=== PATIENT | male | born 1935 | race Caucasian/White ===

== ENCOUNTER 2016-05-21 08:43 | Day surgery (SDC) | payer MEDICARE, BC ==
[~2016-05-21 08:43] MED LIST: Lactated Ringers 1,000 ML IV SCH; Lidocaine 1%/Sod Bicarbonate in NS 8.4% 1 ML Syringe IV PRN; Sodium Chloride 0.9% 10 ML Syringe FLUSH PRN
[2016-05-21] MEDS ORDERED: Propofol 200 MG/20 ML SDV ONE (09:52)
[2016-05-21] MEDS ORDERED: Lidocaine 1% 4 ML ONE (09:52)
--- NOTE | 2016-05-21 09:52 | PCM.PREANE ---
Preanesthetic Assessment - Procedure Proposed Procedure: Diagnostic EGD - Anesthesia/Transfusion/Family Hx Anesthesia History: Prior Anesthesia Without Reaction Family History of Anesthesia Reaction: No - Review of Systems General: Appetite (decreased appetite with stomach pain) Pulmonary: No Symptoms Cardiovascular: No Symptoms Gastrointestinal: Abdominal pain, Decreased appetite Other: Reports: Thyroid Problems (on replacement and stable) - Physical Assessment NPO Status Date: 05/20/16 NPO Status Time: 23:00 O2 Sat by Pulse Oximetry: 96 Respiratory Rate: 16 Vital Signs: Last Vital Signs Temp 36.9 C 05/21/16 08:45 Pulse 73 05/21/16 08:45 Resp 16 05/21/16 08:45 BP 128/72 05/21/16 08:45 Pulse Ox 96 05/21/16 08:45 Height: 1.65 m Weight: 58.06 kg ASA Class: 2 Mental Status: Alert & Oriented x3 Airway Class: Mallampati = 1 Dentition: Reports: Normal Dentition (some fillings) Thyro-Mental Finger Breadths: 3 Mouth Opening Finger Breadths: 3 ROM/Head Extension: Full Lungs: Clear to auscultation, Normal respiratory effort Cardiovascular: Regular Rate, Regular Rhythm, No Murmurs - Allergies Allergies/Adverse Reactions: Allergies Allergy/AdvReac Type Severity Reaction Status Date / Time promethazine HCl AdvReac Confusion Verified 05/20/16 14:27 [From Phenergan] propoxyphene napsylate AdvReac Confusion Verified 05/01/15 14:20 [From Darvocet-N] - Blood Blood Available: No - Acknowledgements Anesthesia Type Planned: MAC Pt an Appropriate Candidate for the Planned Anesthesia: Yes Alternatives and Risks of Anesthesia Discussed w Pt/Guardian: Yes Pt/Guardian Understands and Agrees with Anesthesia Plan: Yes PreAnesthesia Questionnaire HEENT History: Reports: Impaired vision Other HEENT History: wears glasses, has hearing aids Cardiovascular History: Reports: Heart murmur, High cholesterol Other Cardiovascular History: atherosclerosis, heart disease, 1st degree av block, pvcs, valvular incompetance, CABG Respiratory History: Reports: Sleep apnea Other Respiratory History: asbestos exposure Gastrointestinal History: Reports: GERD, Hemorrhoids Other Gastrointestinal History: bloating, peptic ulcer, rectal bleeding, dyspepsia, erovise esophagitis, hiatal hernia Other Genitourinary History: elevated PSA, hematuria 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: 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 Other Musculoskeletal History: restless leg syndrome Neurological History: Reports: None Psychiatric History: Reports: Anxiety Endocrine/Metabolic History: Reports: Hypothyroidism Hematologic History: Reports: None Immunologic History: Reports: None Oncologic (Cancer) History: Reports: None Other Dermatologic History: actinic keratosis, seborrheic keratosis - Past Surgical History Head Surgeries/Procedures: Reports: None HEENT Surgical History: Reports: Cataract surgery Cardiovascular Surgical History: Reports: Coronary artery bypass (x2 3 vessel and 4 vessel) GI Surgical History: Reports: Colonoscopy, EGD - SUBSTANCE USE Smoking Status *Q: Former Smoker (Quit many years ago) Tobacco Use Within Last Twelve Months: No Second Hand Smoke Exposure: No Days Per Week of Alcohol Use: 0 (endorses drinking a beer per month or less) Number of Drinks Per Day: 0 Total Drinks Per Week: 0 Recreational Drug Use History: No - HOME MEDS Home Medications: Home Meds Aspirin [Halfprin] 81 mg PO DAILY 02/14/14 [History] Levothyroxine 75 mcg PO DAILY 02/14/14 [History] Metoclopramide [Reglan] 5 mg PO TID PRN 02/14/14 [History] Pantoprazole Sodium 40 mg PO DAILY 02/14/14 [History] Sertraline HCl 50 mg PO DAILY 02/14/14 [History] atorvaSTATin [Lipitor] 20 mg PO BEDTIME 05/01/15 [History] Arginine HCl [l-Arginine] 1,000 mg PO DAILY 05/20/16 [History] Sucralfate [Carafate] 1 gm PO QID 05/20/16 [History] - CURRENT (IN HOUSE) MEDS Current Meds: Current Medications Lactated Ringer's (Ringers, Lactated) 1,000 mls @ 125 mls/hr IV ASDIRECTED LES Last Admin: 05/21/16 09:00 Dose: 125 mls/hr Lidocaine/Sodium Bicarbonate (Buffered Lidocaine 1% In Ns 8.4%) 0.25 ml IV ONETIME PRN PRN Reason: Prior to IV Start Last Admin: 05/21/16 09:00 Dose: 0.25 ml Sodium Chloride (Saline Flush) 10 ml FLUSH ASDIRECTED PRN PRN Reason: Keep Vein Open Discontinued Medications Lidocaine HCl (Xylocaine-Mpf 1%) Confirm Administered Dose 4 mls @ as directed .ROUTE .STK-MED ONE Stop: 05/21/16 09:53 Propofol (Diprivan 20 Ml) Confirm Administered Dose 200 mg .ROUTE .STK-MED ONE Stop: 05/21/16 09:53 Preanesthetic Assessment - ANESTHESIA/TRANSFUSION/FAMILY HX Anesthesia/Transfusion History: No Prior Transfusion(s), Prior Anesthesia Family History of Anesthesia Reaction: No Intubation History: Unknown - PHYSICAL ASSESSMENT O2 Sat by Pulse Oximetry: 96 RR: 16 Vital Signs: Last Vital Signs Temp 36.9 C 05/21/16 08:45 Pulse 73 05/21/16 08:45 Resp 16 05/21/16 08:45 BP 128/72 05/21/16 08:45 Pulse Ox 96 05/21/16 08:45 Height: 1.65 m Weight: 58.06 kg NPO Status Date: 05/20/16 NPO Status Time: 23:00 - ALLERGIES Allergies/Adverse Reactions: Allergies Allergy/AdvReac Type Severity Reaction Status Date / Time promethazine HCl AdvReac Confusion Verified 05/20/16 14:27 [From Phenergan] propoxyphene napsylate AdvReac Confusion Verified 05/01/15 14:20 [From Darvocet-N]
--- NOTE | 2016-05-21 09:59 | PCM.OPNOTE ---
- General Post-Op/Procedure Note Date of Surgery/Procedure: 05/21/16 Operative Procedure(s): Esophagogastroduodenoscopy with proximal and GE junction biopsies x2 each using cold forceps Findings: moderately large sliding-type 1 hiatal hernia, with no endoscope evidence of esophagitis, ulceration, or stricturing Pre Op Diagnosis: chronic GERD Post-Op Diagnosis: large hiatal hernia Anesthesia Technique: MAC, Moderate sedation Primary Surgeon: Cipriano Jose Pathology: GE junction and proximal esophageal biopsies EBL in mLs: 0 Complications: None Condition: Good Free Text/Narrative:: After adequate IV sedation and analgesia was obtained the patient was placed on his left side. Through a bite-block a lubricated upper endoscope was inserted into the esophagus and advanced under direct vision to the body of the stomach. Air insufflation was given here, followed by identification of the antrum and pylorus, which was entered to the second part of duodenum. The second, and first parts of the duodenum were endoscopically normal with no mass lesions or inflammatory changes seen. The antrum likewise was endoscopically normal. In the retroflexed view I saw a sliding hiatal hernia, which I photographed for the record. The fundus, and cardiac regions were normal. The body of the stomach had normal folds with no inflammatory changes. The scope was withdrawn to the GE junction, which was unremarkable. The herniated pouch was also endoscopically normal. I estimated a 4 cm, herniation through the diaphragmatic hiatus. The body of the esophagus was normal. I took 2 random biopsies of the GE junction and proximal third of the esophagus for histologic evaluation given his history of dysphagia. Air was removed, as I finished the procedure, which he tolerated well. Multimedia Services Coordinator photographs taken for the patient and for the record. I recommend esophageal function studies. As he may be candidate for antireflux surgery.
[2016-05-21 10:03] VITALS: BP 91/59
== END 2016-05-21 10:30 | disposition home or self-care (01) ==
LOC: JD.SDS 08:43
PROVIDERS: ATTEND Surgery
DX: K31.89 Other diseases of stomach and duodenum (principal); K44.9 Diaphragmatic hernia without obstruction or gangrene; I25.10 Atherosclerotic heart disease of native coronary artery without angina pectoris; F41.9 Anxiety disorder, unspecified; E78.5 Hyperlipidemia, unspecified; G47.30 Sleep apnea, unspecified; E03.9 Hypothyroidism, unspecified; Z88.8 Allergy status to other drugs, medicaments and biological substances; Z79.82 Long term (current) use of aspirin; Z79.899 Other long term (current) drug therapy; Z95.1 Presence of aortocoronary bypass graft; Z98.890 Other specified postprocedural states; Z87.891 Personal history of nicotine dependence; Z72.0 Tobacco use
CPT/HCPCS: 43239; 88305; J7120; J2704

== ENCOUNTER 2017-01-08 08:17 | Emergency (ER) | payer MEDICARE, BC ==
[2017-01-08] MEDS ORDERED: Nitroglycerin 0.4 MG Tab.SL SL PRN (08:35)
[2017-01-08] MEDS ORDERED: Sodium Chloride 0.9% 10 ML Syringe FLUSH PRN (08:35)
[2017-01-08 08:43] VITALS: BP 165/62
--- NOTE | 2017-01-08 09:36 | CR ---
Chest: Portable view of the chest was obtained. Comparison: Prior chest x-ray of 12/19/14. Heart size and mediastinum are within normal limits. Lungs are clear. Surgical clips are noted at the gastroesophageal junction. Bony structures are grossly intact. Impression: 1. Incidental findings. Nothing acute is seen on portable chest x-ray. Diagnostic code #2
--- NOTE | 2017-01-08 10:53 | EDM.PDOC ---
ED HPI GENERAL MEDICAL PROBLEM - General Chief Complaint: Chest Pain Stated Complaint: CHEST PAIN Time Seen by Provider: 01/08/17 08:29 Source of Information: Reports: Patient History Limitations: Reports: No Limitations - History of Present Illness INITIAL COMMENTS - FREE TEXT/NARRATIVE: The patient woke up with chest pain at 0430 this morning. He describes it has an "elephant sitting on my chest." He has some shortness of breath with it. Exertion does not make it worse. He has no abdominal pain, nausea or vomiting. He has no fever, chills, or cough. He has a history of CAD. He had CABG twice. Back in 1994 and 2004. He quit smoking about 40 years ago. He has a bad family cardiac history with multiple siblings having bypass. He has not seen a patternmaker plaster for over 1 year. His doctor is Dr eKyes. Onset: Sudden Duration: Hour(s): (0430) Location: Reports: Chest Quality: Reports: Pressure Severity: Moderate Improves with: Reports: None Worsens with: Reports: None Context: Reports: Activity (The pain woke him up) Associated Symptoms: Reports: Chest Pain, Shortness of Breath. Denies: Cough, Fever/Chills, Nausea/Vomiting Middle Chest Pain Score (Numeric/FACES): 9 - Related Data Allergies Allergy/AdvReac Type Severity Reaction Status Date / Time promethazine HCl AdvReac Confusion Verified 01/08/17 08:34 [From Phenergan] propoxyphene napsylate AdvReac Confusion Verified 01/08/17 08:34 [From Darvocet-N] Home Meds: Home Meds Aspirin [Halfprin] 81 mg PO DAILY 02/14/14 [History] Levothyroxine 75 mcg PO DAILY 02/14/14 [History] Sertraline HCl 50 mg PO DAILY 02/14/14 [History] atorvaSTATin [Lipitor] 20 mg PO BEDTIME 05/01/15 [History] Arginine HCl [l-Arginine] 1,000 mg PO DAILY 05/20/16 [History] Cholecalciferol (Vitamin D3) [Vitamin D3] 1,000 unit PO DAILY 01/08/17 [History] L.acidoph,Paracasei, B.lactis [Probiotic] 1 tab PO DAILY 01/08/17 [History] Omeprazole 20 mg PO DAILY 01/08/17 [History] Past Medical History HEENT History: Reports: Impaired Vision Other HEENT History: wears glasses, has hearing aids Cardiovascular History: Reports: Heart Murmur, High Cholesterol Other Cardiovascular History: atherosclerosis, heart disease, 1st degree av block, pvcs, valvular incompetance, CABG Respiratory History: Reports: Sleep Apnea Other Respiratory History: asbestos exposure Gastrointestinal History: Reports: GERD, Hemorrhoids Other Gastrointestinal History: bloating, peptic ulcer, rectal bleeding, dyspepsia, erovise esophagitis, hiatal hernia Other Genitourinary History: elevated PSA, hematuria PIT HAND History: Reports: None Other Musculoskeletal History: restless leg syndrome Neurological History: Reports: None Psychiatric History: Reports: Anxiety Endocrine/Metabolic History: Reports: Hypothyroidism Hematologic History: Reports: None Immunologic History: Reports: None Oncologic (Cancer) History: Reports: None Other Dermatologic History: actinic keratosis, seborrheic keratosis - Past Surgical History Head Surgeries/Procedures: Reports: None HEENT Surgical History: Reports: Cataract Surgery Cardiovascular Surgical History: Reports: Coronary Artery Bypass GI Surgical History: Reports: Colonoscopy, EGD Social & Family History - Family History Cardiac: Reports: CAD, MS - Tobacco Use Smoking Status *Q: Former Smoker Years of Tobacco use: 20 Packs/Tins Daily: 0.5 Used Tobacco, but Quit: Yes Month Tobacco Last Used: unk Second Hand Smoke Exposure: No - Caffeine Use Caffeine Use: Reports: Coffee, Soda - Alcohol Use Days Per Week of Alcohol Use: 0 (endorses drinking a beer per month or less) Number of Drinks Per Day: 0 Total Drinks Per Week: 0 - Recreational Drug Use Recreational Drug Use: No Drug Use in Last 12 Months: No ED ROS GENERAL - Review of Systems Review Of Systems: See Below Constitutional: Reports: No Symptoms HEENT: Reports: No Symptoms Respiratory: Reports: Shortness of Breath Cardiovascular: Reports: Chest Pain Endocrine: Reports: No Symptoms GI/Abdominal: Reports: No Symptoms : Reports: No Symptoms Musculoskeletal: Reports: No Symptoms ED EXAM, GENERAL - Physical Exam Exam: See Below Exam Limited By: No Limitations General Appearance: Alert, No Apparent Distress Ears: Normal External Exam Nose: Normal Inspection Head: Atraumatic, Normocephalic Neck: Normal Inspection Respiratory/Chest: No Respiratory Distress, Lungs Clear, Normal Breath Sounds Cardiovascular: Regular Rate, Rhythm, No Edema, No Murmur GI/Abdominal: Soft, Non-Tender, No Organomegaly, No Mass Back Exam: Normal Inspection EKG INTERPRETATION EKG Date: 01/08/17 Time: 08:24 Rhythm: NSR Rate (Beats/Min): 65 [place]: Normal P-Wave: Present QRS: Normal ST-T: Depressed (V2 and V3) Course - Vital Signs Last Recorded V/S: Last Vital Signs Temp 97.2 F 01/08/17 08:30 Pulse 67 01/08/17 08:30 Resp 15 01/08/17 08:30 BP 165/62 H 01/08/17 08:38 Pulse Ox 100 01/08/17 08:30 - Orders/Labs/Meds Orders: Active Orders 24 hr Category Date Time Status Cardiac Monitoring [RC] . DIRECTED Care 01/08/17 08:35 Active EKG Documentation Completion [RC] ASDIRECTED Care 01/08/17 11:18 Active EKG Documentation Completion [RC] STAT Care 01/08/17 08:35 Active Oxygen Therapy [RC] PRN Care 01/08/17 08:35 Active Peripheral IV Care [RC] . DIRECTED Care 01/08/17 08:35 Active CBC W/O DIFF,HEMOGRAM [HEME] MOTH@0700 Lab 01/12/17 07:00 Ordered CBC W/O DIFF,HEMOGRAM [HEME] MOTH@0700 Lab 01/15/17 07:00 Ordered CBC W/O DIFF,HEMOGRAM [HEME] MOTH@0700 Lab 01/19/17 07:00 Ordered CBC W/O DIFF,HEMOGRAM [HEME] MOTH@0700 Lab 01/22/17 07:00 Ordered CBC W/O DIFF,HEMOGRAM [HEME] MOTH@0700 Lab 01/26/17 07:00 Ordered CBC W/O DIFF,HEMOGRAM [HEME] MOTH@0700 Lab 01/29/17 07:00 Ordered Heparin Sodium/D5W [Heparin 25,000 Units in D5W 500 ML] Med 01/08/17 12:15 Active 25,000 units in 500 ml IV TITRATE Nitroglycerin [Nitrostat] Med 01/08/17 08:35 Active 0.4 mg SL Q5M PRN Sodium Chloride 0.9% [Saline Flush] Med 01/08/17 08:35 Active 10 ml FLUSH ASDIRECTED PRN Peripheral IV Insertion Adult [OM.PC] Stat Oth 01/08/17 08:35 Ordered EKG 12 Lead [EK] Stat Ther 01/08/17 11:18 Ordered Medication Orders Heparin Sodium/Dextrose (Heparin 25,000 Units In D5w 500 Ml) 25,000 units in 500 mls @ 0 mls/hr IV TITRATE LES; 17 UNITS/KG/HR PRN Reason: Protocol Nitroglycerin (Nitrostat) 0.4 mg SL Q5M PRN PRN Reason: Chest Pain Last Admin: 01/08/17 08:38 Dose: 0.4 mg Sodium Chloride (Saline Flush) 10 ml FLUSH ASDIRECTED PRN PRN Reason: Keep Vein Open Last Admin: 01/08/17 09:01 Dose: 10 ml Labs: Laboratory Tests 01/08/17 01/08/17 01/08/17 Range/Units 08:25 08:25 11:25 WBC 8.19 (4.23-9.07) K/mm3 RBC 5.18 (4.63-6.08) M/mm3 Hgb 15.6 (13.7-17.5) gm/L Hct 46.7 (40.1-51.0) % MCV 90.2 (79.0-92.2) fl MCH 30.1 (25.7-32.2) pg MCHC 33.4 (32.2-35.5) g/dl RDW Std Deviation 43.0 (35.1-43.9) fL Plt Count 250 (163-337) K/mm3 MPV 11.3 (9.4-12.3) fl Neut % (Auto) 65.1 (34.0-67.9) % Lymph % (Auto) 20.9 L (21.8-53.1) % [place] % (Auto) 11.7 (5.3-12.2) % Eos % (Auto) 2.1 (0.8-7.0) Baso % (Auto) 0.1 (0.1-1.2) % Neut # (Auto) 5.33 (1.78-5.38) K/mm3 Lymph # (Auto) 1.71 (1.32-3.57) K/mm3 [place] # (Auto) 0.96 H (0.30-0.82) K/mm3 Eos # (Auto) 0.17 (0.04-0.54) K/mm3 Baso # (Auto) 0.01 (0.01-0.08) K/mm3 Sodium 139 (136-145) mEq/L Potassium 4.2 (3.5-5.1) mEq/L Chloride 102 (98-107) mEq/L Carbon Dioxide 29 (21-32) mEq/L Anion Gap 12.2 (5-15) BUN 20 H (7-18) mg/dL Creatinine 1.2 (0.7-1.3) mg/dL Est Cr Clr Drug Dosing 40.03 mL/min Estimated GFR (MDRD) 58 (>60) mL/min BUN/Creatinine Ratio 16.7 (14-18) Glucose 112 (83-115) mg/dL Calcium 9.4 (8.5-10.1) mg/dL Total Bilirubin 0.6 (0.2-1.0) mg/dL AST 26 (15-37) U/L ALT 33 (16-63) U/L Alkaline Phosphatase 70 (46-116) U/L Troponin I < 0.017 0.103 H* (0.00-0.056) ng/mL Total Protein 7.7 (6.4-8.2) g/dl Albumin 3.9 (3.4-5.0) g/dl Globulin 3.8 gm/dL Albumin/Globulin Ratio 1.0 (1-2) Meds: Medications Generic Name Dose Route Start Last Admin Trade Name Freq PRN Reason Stop Dose Admin Heparin Sodium/Dextrose 25,000 units in 500 mls @ 0 mls/hr 01/08/17 12:15 Heparin 25,000 Units In D5w 500 Ml IV TITRATE LES Protocol 17 UNITS/KG/HR Nitroglycerin 0.4 mg 01/08/17 08:35 01/08/17 08:38 Nitrostat SL 0.4 mg Q5M PRN Administration Chest Pain Sodium Chloride 10 ml 01/08/17 08:35 01/08/17 09:01 Saline Flush FLUSH 10 ml ASDIRECTED PRN Administration Keep Vein Open Discontinued Medications Generic Name Dose Route Start Last Admin Trade Name Freq PRN Reason Stop Dose Admin Heparin Sodium (Porcine) 4,500 units 01/08/17 12:10 Heparin Sodium IVPUSH 01/08/17 12:11 ONETIME ONE - Re-Assessments/Exams Free Text/Narrative Re-Assessment/Exam: 01/08/17 10:56 I ordered an IV saline lock, EKG, CXR, labs, and nitro. The patient took a full 325mg of aspirin at home. After the nitro his pain went completely away. His EKG shows a NSR with some ST depression in V2. This appears to be new. His CXR looks good. His CBC and CMP looks good. His troponin is negative. I will repeat a troponin and EKG at the 3 hour kevon. 01/08/17 12:13 His repeat troponin came back elevated at 0.103. This is a significant change from before. He is still pain free. I have ordered a heparin bolus of 4, 500units IV and a drip at 1,000units per hour. I feel he needs to see cardiology in [place]. I called [facility] in [place] and talked with Dr Stanley the hospitalist coroner/medical examiner and she accepted the patient. I will be going by ambulance. 01/08/17 12:33 Departure - Departure Time of Disposition: 12:35 Disposition: DC/Tfer to Acute Hospital 02 Reason for Transfer *Q: Other Condition: Serious Clinical Impression: Non-STEMI (non-ST elevated myocardial infarction) Referrals: Azael Gatica MD [Primary Care Provider] - Forms: ED Department Discharge - My Orders Last 24 Hours: My Active Orders 01/08/17 08:35 Cardiac Monitoring [RC] . DIRECTED EKG Documentation Completion [RC] STAT Oxygen Therapy [RC] PRN Peripheral IV Care [RC] . DIRECTED Nitroglycerin [Nitrostat] 0.4 mg SL Q5M PRN Sodium Chloride 0.9% [Saline Flush] 10 ml FLUSH ASDIRECTED PRN Peripheral IV Insertion Adult [OM.PC] Stat 01/08/17 11:18 EKG Documentation Completion [RC] ASDIRECTED EKG 12 Lead [EK] Stat 01/08/17 12:15 Heparin Sodium/D5W [Heparin 25,000 Units in D5W 500 ML] 25,000 units in 500 ml IV TITRATE 01/12/17 07:00 CBC W/O DIFF,HEMOGRAM [HEME] MOTH@0700 01/15/17 07:00 CBC W/O DIFF,HEMOGRAM [HEME] MOTH@0700 11/20/17 07:00 CBC W/O DIFF,HEMOGRAM [HEME] MOTH@69901/22/17 07:00 CBC W/O DIFF,HEMOGRAM [HEME] MOTH@69901/26/17 07:00 CBC W/O DIFF,HEMOGRAM [HEME] MOTH@69901/29/17 07:00 CBC W/O DIFF,HEMOGRAM [HEME] MOTH@699 - Assessment/Plan Last 24 Hours: My Active Orders 01/08/17 08:35 Cardiac Monitoring [RC] . DIRECTED EKG Documentation Completion [RC] STAT Oxygen Therapy [RC] PRN Peripheral IV Care [RC] . DIRECTED Nitroglycerin [Nitrostat] 0.4 mg SL Q5M PRN Sodium Chloride 0.9% [Saline Flush] 10 ml FLUSH ASDIRECTED PRN Peripheral IV Insertion Adult [OM.PC] Stat 01/08/17 11:18 EKG Documentation Completion [RC] ASDIRECTED EKG 12 Lead [EK] Stat 01/08/17 12:15 Heparin Sodium/D5W [Heparin 25,000 Units in D5W 500 ML] 25,000 units in 500 ml IV TITRATE 01/12/17 07:00 CBC W/O DIFF,HEMOGRAM [HEME] MOTH@69901/15/17 07:00 CBC W/O DIFF,HEMOGRAM [HEME] MOTH@69901/19/17 07:00 CBC W/O DIFF,HEMOGRAM [HEME] MOTH@69901/22/17 07:00 CBC W/O DIFF,HEMOGRAM [HEME] MOTH@69901/26/17 07:00 CBC W/O DIFF,HEMOGRAM [HEME] MOTH@69901/29/17 07:00 CBC W/O DIFF,HEMOGRAM [HEME] MOTH@699
[2017-01-08] MEDS ORDERED: Heparin Sodium 5,000 Units/ML Vial IVPUSH ONE (12:10)
[2017-01-08] MEDS ORDERED: Heparin Sodium/D5W 25,000 UNITS/500 ML BAG IV SCH (12:15)
== END 2017-01-08 13:15 ==
LOC: JD.ED 08:17
DX: I21.4 Non-ST elevation (NSTEMI) myocardial infarction (principal); E78.00 Pure hypercholesterolemia, unspecified; K21.9 Gastro-esophageal reflux disease without esophagitis; E03.9 Hypothyroidism, unspecified; Z95.1 Presence of aortocoronary bypass graft; Z87.891 Personal history of nicotine dependence; Z79.82 Long term (current) use of aspirin; Z79.899 Other long term (current) drug therapy; Z88.8 Allergy status to other drugs, medicaments and biological substances
CPT/HCPCS: 36415; 71010; 80053; 84484; 85025; 93005; 96365; 96375; 99285; A9270; J1644; J7050; 93010

== ENCOUNTER 2017-08-27 19:53 | Emergency (ER) | payer MEDICARE, OTHER ==
[2017-08-27 20:02] VITALS: BP 110/75
[2017-08-27] MEDS ORDERED: Lidocaine 1% 20 ML MDV INJECT ONE (20:28)
[2017-08-27] MEDS ORDERED: Lidocaine 1% 10 ML MDV ONE (20:33)
[2017-08-27] MEDS ORDERED: Lidocaine 1% 10 ML MDV INJECT ONE (20:34)
--- NOTE | 2017-08-27 21:14 | EDM.PDOC ---
ED HPI GENERAL MEDICAL PROBLEM - General Chief Complaint: Laceration Stated Complaint: CUT ON LEFT HAND Time Seen by Provider: 08/27/17 20:29 Source of Information: Reports: Patient History Limitations: Reports: No Limitations - History of Present Illness INITIAL COMMENTS - FREE TEXT/NARRATIVE: 82-year-old male presents for evaluation and treatment of a cut to the dorsal left hand. Injury occurred around 1700. States that he cut his hand on some glass. He is on Plavix and aspirin daily. Having trouble controlling the bleeding, the wound continues to ooze. No numbness, tingling or decreased range motion to the left hand. Tetanus is up-to-date. Patient is right-handed. Onset: Today - Related Data Allergies Allergy/AdvReac Type Severity Reaction Status Date / Time promethazine HCl AdvReac Confusion Verified 01/30/17 10:12 [From Phenergan] propoxyphene napsylate AdvReac Confusion Verified 01/30/17 10:12 [From Darvocet-N] Home Meds: Home Meds Aspirin [Halfprin] 81 mg PO DAILY 02/14/14 [History] Levothyroxine 75 mcg PO DAILY 02/14/14 [History] Sertraline HCl 50 mg PO DAILY 02/14/14 [History] Cholecalciferol (Vitamin D3) [Vitamin D3] 1,000 unit PO DAILY 01/08/17 [History] Clopidogrel Bisulfate [Clopidogrel] 75 mg PO DAILY 01/20/17 [History] Isosorbide Mononitrate [Isosorbide Mononitrate ER] 60 mg PO DAILY 01/20/17 [ History] Pantoprazole Sodium 40 mg PO DAILY 01/20/17 [History] Ezetimibe [Zetia] 10 mg PO DAILY 02/06/17 [History] Clopidogrel [Plavix] 75 mg PO DAILY 08/27/17 [History] Rosuvastatin [Crestor] 5 mg PO DAILY 08/27/17 [History] Past Medical History HEENT History: Reports: Impaired Vision Other HEENT History: wears glasses, has hearing aids Cardiovascular History: Reports: Heart Murmur, High Cholesterol Other Cardiovascular History: atherosclerosis, heart disease, 1st degree av block, pvcs, valvular incompetance, CABG Respiratory History: Reports: Sleep Apnea Other Respiratory History: asbestos exposure Gastrointestinal History: Reports: GERD, Hemorrhoids Other Gastrointestinal History: bloating, peptic ulcer, rectal bleeding, dyspepsia, erovise esophagitis, hiatal hernia Genitourinary History: Reports: Other (See Below) Other Genitourinary History: elevated PSA, hematuria [employer]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 Other Musculoskeletal History: restless leg syndrome Neurological History: Reports: None Other Neuro History: restless leg syndrome Psychiatric History: Reports: Anxiety Endocrine/Metabolic History: Reports: Hypothyroidism Hematologic History: Reports: None Other Hematologic History: is on plavix and aspirin Immunologic History: Reports: None Oncologic (Cancer) History: Reports: None Dermatologic History: Reports: Other (See Below) Other Dermatologic History: actinic keratosis, seborrheic keratosis - Past Surgical History Head Surgeries/Procedures: Reports: None HEENT Surgical History: Reports: Cataract Surgery Cardiovascular Surgical History: Reports: Coronary Artery Bypass GI Surgical History: Reports: Colonoscopy, EGD Social & Family History - Family History Cardiac: Reports: CAD, [place] - Tobacco Use Smoking Status *Q: Unknown Ever Smoked - Caffeine Use Caffeine Use: Reports: Coffee - Recreational Drug Use Recreational Drug Use: No ED ROS GENERAL - Review of Systems Review Of Systems: See Below Musculoskeletal: Reports: Other (no decreased ROM to the left hand). Denies: Hand Pain Skin: Reports: Wound (dorsal left hand ) Neurological: Denies: Numbness, Tingling ED EXAM, SKIN/RASH Exam: See Below Exam Limited By: No Limitations General Appearance: Alert, WD/WN, No Apparent Distress Respiratory/Chest: No Respiratory Distress Cardiovascular: Normal Peripheral Pulses Peripheral Pulses: 2+: Radial (L) Extremities: Normal Inspection, Normal Range of Motion (left hand), Non-Tender, Normal Capillary Refill Neurological: Alert, Oriented, Normal Cognition Psychiatric: Normal Affect, Normal Mood Skin: Warm, Dry, Normal Color, Wound/Incision (2.5cm laceration to the dorsal left hand, subcutaneous; actively oozing blood) Location, Skin: Upper Extremity, Left Characteristics: Linear ED SKIN PROCEDURES - Laceration/Wound Repair Left Dorsal Hand Lac/Wound length In cm: 2.5 Appearance: Subcutaneous, Linear Distal NVT: Neuro & Vascular Intact, No Tendon Injury Anesthetic Type: Local Local Anesthesia - Lidocaine (Xylocaine): 1% Plain Local Anesthetic Volume: 1cc Skin Prep: Saline, Sterile Drape Exploration/Debridement/Repair: No Foreign Material Found Closed with: Sutures Suture Size: other (5-0) # of Sutures: 5 Suture Type: Nylon, Interrupted, Simple Sterile Dressing Applied: Nurse Tetanus Status Addressed: Yes Complications: No Course - Vital Signs Last Recorded V/S: Last Vital Signs Temp 98.1 F 08/27/17 20:00 Pulse 84 08/27/17 20:00 Resp 18 08/27/17 20:00 BP 110/75 08/27/17 20:00 Pulse Ox 94 L 08/27/17 20:00 - Orders/Labs/Meds Meds: Medications Discontinued Medications Generic Name Dose Route Start Last Admin Trade Name Osmin PRN Reason Stop Dose Admin Lidocaine HCl 20 ml 08/27/17 20:28 Xylocaine 1% INJECT 08/27/17 20:29 ONETIME ONE Lidocaine HCl 10 ml 08/27/17 20:34 08/27/17 20:34 Xylocaine 1% INJECT 08/27/17 20:35 10 ml ONETIME ONE Administration Lidocaine HCl Confirm 08/27/17 20:33 08/27/17 20:55 Xylocaine 1% Administered 08/27/17 20:34 Not Given Dose 10 ml .ROUTE .[facility] ONE - Re-Assessments/Exams Free Text/Narrative Re-Assessment/Exam: 08/27/17 21:10 5 sutures placed to the dorsal left hand. Patient tolerated well. His tetanus is up-to-date. Discharge instructions as documented. Departure - Departure Time of Disposition: 21:10 Disposition: Home, Self-Care 01 Condition: Good Clinical Impression: Laceration - Discharge Information Instructions: Laceration Care, Adult Referrals: Azael Gatica MD [Primary Care Provider] - Forms: ED Department Discharge Additional Instructions: Monitor the wound for signs of infection such as increase swelling, pus or redness. Present to the clinic or the ER should this develop. Wash the wound with gentle soap and water. Apply antibacterial ointment twice a day. Have the sutures removed in 10 days. The [facility] clinic can remove the sutures for free. Call [phone] to schedule with a provider there. tylenol or motrin as needed for pain. Please return to the ER should your symptoms change or worsen.
== END 2017-08-27 21:19 | disposition home or self-care (01) ==
LOC: JD.ED 19:53
DX: S61.412A Laceration without foreign body of left hand, initial encounter (principal); E78.00 Pure hypercholesterolemia, unspecified; K21.9 Gastro-esophageal reflux disease without esophagitis; I25.810 Atherosclerosis of coronary artery bypass graft(s) without angina pectoris; E03.9 Hypothyroidism, unspecified; Z79.01 Long term (current) use of anticoagulants; Z79.899 Other long term (current) drug therapy; Z95.1 Presence of aortocoronary bypass graft; Z79.82 Long term (current) use of aspirin; Z88.8 Allergy status to other drugs, medicaments and biological substances; W25.XXXA Contact with sharp glass, initial encounter
CPT/HCPCS: 12001; 99283-25

== ENCOUNTER 2017-10-15 22:41 | Emergency (ER) | payer MEDICARE, OTHER ==
[2017-10-15 22:49] VITALS: BP 152/72
[2017-10-15] MEDS ORDERED: Sodium Chloride 0.9% 10 ML Syringe FLUSH PRN (23:00)
[2017-10-15] MEDS ORDERED: Sodium Chloride 0.9% 1,000 ML IV SCH (23:00)
[2017-10-15] MEDS ORDERED: Ondansetron 4 MG/2 ML SDV IVPUSH ONE (23:00)
--- NOTE | 2017-10-16 00:08 | EDM.PDOC ---
ED HPI GENERAL MEDICAL PROBLEM - General Chief Complaint: Neurological Problem Stated Complaint: DIZZY,SICK TO STOMACH Time Seen by Provider: 10/15/17 22:55 Source of Information: Reports: Patient History Limitations: Reports: No Limitations - History of Present Illness INITIAL COMMENTS - FREE TEXT/NARRATIVE: The patient presents with dizziness and nausea. The patient was getting up from his chair to get ready for bed when this started. He has never had this happen before and he was feeling fine just prior to getting out of his chair. He says the room is spinning and he has nausea. He has some mild pressure to the back of his head. He has no fever, chills, cough, ear pain, hearing loss, ringing in his ears, chest pain, shortness of breath, abdominal pain, vomiting, numbness or weakness. Onset: Sudden Duration: Minutes: Location: Reports: Head Quality: Reports: Pressure Severity: Mild Improves with: Reports: Immobilization Worsens with: Reports: Movement Context: Reports: Activity (He just sat up from his chair) Associated Symptoms: Reports: Headaches. Denies: Confusion, Chest Pain, Cough, Fever/Chills, Nausea/Vomiting, Shortness of Breath - Related Data Allergies Allergy/AdvReac Type Severity Reaction Status Date / Time promethazine HCl AdvReac Confusion Verified 10/15/17 22:49 [From Phenergan] propoxyphene napsylate AdvReac Confusion Verified 10/15/17 22:49 [From Darvocet-N] Home Meds: Home Meds Aspirin [Halfprin] 81 mg PO DAILY 02/14/14 [History] Levothyroxine 75 mcg PO DAILY 02/14/14 [History] Sertraline HCl 50 mg PO DAILY 02/14/14 [History] Cholecalciferol (Vitamin D3) [Vitamin D3] 1,000 unit PO DAILY 01/08/17 [History] Clopidogrel Bisulfate [Clopidogrel] 75 mg PO DAILY 01/20/17 [History] Isosorbide Mononitrate [Isosorbide Mononitrate ER] 60 mg PO DAILY 01/20/17 [ History] Pantoprazole Sodium 40 mg PO DAILY 01/20/17 [History] Ezetimibe [Zetia] 10 mg PO DAILY 02/06/17 [History] Clopidogrel [Plavix] 75 mg PO DAILY 08/27/17 [History] Rosuvastatin [Crestor] 5 mg PO DAILY 08/27/17 [History] Meclizine [Antivert] 25 mg PO Q6H PRN #20 tab 10/16/17 [Rx] Past Medical History HEENT History: Reports: Impaired Vision Other HEENT History: wears glasses, has hearing aids Cardiovascular History: Reports: Heart Murmur, High Cholesterol Other Cardiovascular History: atherosclerosis, heart disease, 1st degree av block, pvcs, valvular incompetance, CABG Respiratory History: Reports: Sleep Apnea Other Respiratory History: asbestos exposure Gastrointestinal History: Reports: GERD, Hemorrhoids Other Gastrointestinal History: bloating, peptic ulcer, rectal bleeding, dyspepsia, erovise esophagitis, hiatal hernia Genitourinary History: Reports: Other (See Below) Other Genitourinary History: elevated PSA, hematuria 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 Other Musculoskeletal History: restless leg syndrome Neurological History: Reports: None Other Neuro History: restless leg syndrome Psychiatric History: Reports: Anxiety Endocrine/Metabolic History: Reports: Hypothyroidism Hematologic History: Reports: None Other Hematologic History: is on plavix and aspirin Immunologic History: Reports: None Oncologic (Cancer) History: Reports: None Dermatologic History: Reports: Other (See Below) Other Dermatologic History: actinic keratosis, seborrheic keratosis - Past Surgical History Head Surgeries/Procedures: Reports: None HEENT Surgical History: Reports: Cataract Surgery Cardiovascular Surgical History: Reports: Coronary Artery Bypass GI Surgical History: Reports: Colonoscopy, EGD Social & Family History - Family History Cardiac: Reports: CAD, [place] - Tobacco Use Smoking Status *Q: Never Smoker - Caffeine Use Caffeine Use: Reports: Coffee - Recreational Drug Use Recreational Drug Use: No ED ROS GENERAL - Review of Systems Review Of Systems: See Below Constitutional: Reports: No Symptoms HEENT: Reports: Vertigo Respiratory: Reports: No Symptoms Cardiovascular: Reports: No Symptoms Endocrine: Reports: No Symptoms GI/Abdominal: Reports: Nausea. Denies: Abdominal Pain, Vomiting : Reports: No Symptoms Musculoskeletal: Reports: No Symptoms Skin: Reports: No Symptoms Neurological: Reports: Headache ED EXAM, NEURO - Physical Exam Exam: See Below Exam Limited By: No Limitations General Appearance: Alert, No Apparent Distress Eye Exam: Left Eye: Nystagmus, Bilateral Eye: EOMI Ears: Normal External Exam, Normal Canal, Normal TMs Nose: Normal Inspection Throat/Mouth: Normal Inspection Head Exam: Atraumatic, Normocephalic Neck: Normal Inspection Respiratory/Chest: No Respiratory Distress, Lungs Clear, Normal Breath Sounds Cardiovascular: Regular Rate, Rhythm, No Edema, No Murmur GI/Abdominal: Soft, Non-Tender, No Organomegaly, No Mass Neurological: Alert, Normal Gait, No Motor/Sensory Deficits EKG INTERPRETATION EKG Date: 10/15/17 Time: 23:10 Rhythm: Other (Sinus bradycardia) Rate (Beats/Min): 55 [place]: Normal P-Wave: Present QRS: Normal ST-T: Normal QT: Normal MA/PQ Interval: 1st degree HB Course - Vital Signs Last Recorded V/S: Last Vital Signs Temp 96.7 F 10/15/17 22:45 Pulse 62 10/15/17 22:45 Resp 16 10/15/17 22:45 BP 152/72 H 10/15/17 22:45 Pulse Ox 93 L 10/15/17 22:45 - Orders/Labs/Meds Orders: Active Orders 24 hr Category Date Time Status Cardiac Monitoring [RC] . DIRECTED Care 10/15/17 23:00 Active EKG Documentation Completion [RC] STAT Care 10/15/17 23:01 Active Peripheral IV Care [RC] . DIRECTED Care 10/15/17 23:01 Active Head wo Cont [CT] Stat Exams 10/15/17 23:02 Taken Sodium Chloride 0.9% [Normal Saline] 1,000 ml Med 10/15/17 23:00 Active IV ASDIRECTED Sodium Chloride 0.9% [Saline Flush] Med 10/15/17 23:00 Active 10 ml FLUSH ASDIRECTED PRN ED Antiemetic Medication Reflex [OM.PC] Stat Oth 10/15/17 23:00 Ordered Peripheral IV Insertion Adult [OM.PC] Stat Oth 10/15/17 23:00 Ordered Medication Orders Sodium Chloride (Normal Saline) 1,000 mls @ 125 mls/hr IV ASDIRECTED LES Last Admin: 10/15/17 23:12 Dose: 125 mls/hr Sodium Chloride (Saline Flush) 10 ml FLUSH ASDIRECTED PRN PRN Reason: Keep Vein Open Last Admin: 10/15/17 23:12 Dose: 10 ml Labs: Laboratory Tests 10/15/17 10/15/17 Range/Units 23:10 23:10 WBC 7.24 (4.23-9.07) K/mm3 RBC 4.70 (4.63-6.08) M/mm3 Hgb 14.4 (13.7-17.5) gm/L Hct 43.2 (40.1-51.0) % MCV 91.9 (79.0-92.2) fl MCH 30.6 (25.7-32.2) pg MCHC 33.3 (32.2-35.5) g/dl RDW Std Deviation 43.1 (35.1-43.9) fL Plt Count 212 (163-337) K/mm3 MPV 11.2 (9.4-12.3) fl Neut % (Auto) 56.4 (34.0-67.9) % Lymph % (Auto) 29.6 (21.8-53.1) % [place] % (Auto) 11.9 (5.3-12.2) % Eos % (Auto) 1.9 (0.8-7.0) Baso % (Auto) 0.1 (0.1-1.2) % Neut # (Auto) 4.08 (1.78-5.38) K/mm3 Lymph # (Auto) 2.14 (1.32-3.57) K/mm3 [place] # (Auto) 0.86 H (0.30-0.82) K/mm3 Eos # (Auto) 0.14 (0.04-0.54) K/mm3 Baso # (Auto) 0.01 (0.01-0.08) K/mm3 Sodium 140 (136-145) mEq/L Potassium 3.5 (3.5-5.1) mEq/L Chloride 105 (98-107) mEq/L Carbon Dioxide 27 (21-32) mEq/L Anion Gap 11.5 (5-15) BUN 22 H (7-18) mg/dL Creatinine 1.1 (0.7-1.3) mg/dL Est Cr Clr Drug Dosing 42.95 mL/min Estimated GFR (MDRD) > 60 (>60) mL/min BUN/Creatinine Ratio 20.0 H (14-18) Glucose 130 H (83-115) mg/dL Calcium 8.5 (8.5-10.1) mg/dL Total Bilirubin 0.2 (0.2-1.0) mg/dL AST 21 (15-37) U/L ALT 33 (16-63) U/L Alkaline Phosphatase 60 (46-116) U/L Troponin I < 0.017 (0.00-0.056) ng/mL Total Protein 6.5 (6.4-8.2) g/dl Albumin 3.3 L (3.4-5.0) g/dl Globulin 3.2 gm/dL Albumin/Globulin Ratio 1.0 (1-2) Meds: Medications Generic Name Dose Route Start Last Admin Trade Name Freq PRN Reason Stop Dose Admin Sodium Chloride 1,000 mls @ 125 mls/hr 10/15/17 23:00 10/15/17 23:12 Normal Saline IV 125 mls/hr ASDIRECTED LES Administration Sodium Chloride 10 ml 10/15/17 23:00 10/15/17 23:12 Saline Flush FLUSH 10 ml ASDIRECTED PRN Administration Keep Vein Open Discontinued Medications Generic Name Dose Route Start Last Admin Trade Name Freq PRN Reason Stop Dose Admin Meclizine HCl 25 mg 10/15/17 23:01 10/15/17 23:11 Antivert PO 10/15/17 23:02 25 mg ONETIME ONE Administration Ondansetron HCl 4 mg 10/15/17 23:00 10/15/17 23:12 Zofran IVPUSH 10/15/17 23:01 4 mg ONETIME ONE Administration - Re-Assessments/Exams Free Text/Narrative Re-Assessment/Exam: 10/16/17 00:10 I ordered an IV NS at 125mL/hr, zofran 4mg IV, antivert 25mg by mouth, EKG, CT of his head, and labs. His EKG shows a sinus bradycardia and 1st degree AV block but no acute changes. His CBC and CMP look good. His troponin is negative. I am waiting for the CT results. His CT did look good to me. 10/16/17 00:[address] of his head looks good. This is vertigo. I will discharge him home with some antivert. Departure - Departure Time of Disposition: 00:35 Disposition: Home, Self-Care 01 Condition: Good Clinical Impression: Vertigo - Discharge Information *PRESCRIPTION DRUG MONITORING PROGRAM REVIEWED*: Not Applicable *COPY OF PRESCRIPTION DRUG MONITORING REPORT IN PATIENT RIKA: Not Applicable Prescriptions: Meclizine [Antivert] 25 mg PO Q6H PRN #20 tab PRN Reason: Dizziness Referrals: Azael Gatica MD [Primary Care Provider] - Forms: ED Department Discharge Additional Instructions: Drink plenty of fluid. Take the antivert every 6 hours as needed for dizziness. Be careful with quick position changes. Please return if you are worse. - My Orders Last 24 Hours: My Active Orders 10/15/17 23:00 Cardiac Monitoring [RC] . DIRECTED Sodium Chloride 0.9% [Normal Saline] 1,000 ml IV ASDIRECTED Sodium Chloride 0.9% [Saline Flush] 10 ml FLUSH ASDIRECTED PRN ED Antiemetic Medication Reflex [OM.PC] Stat Peripheral IV Insertion Adult [OM.PC] Stat 10/15/17 23:01 EKG Documentation Completion [RC] STAT Peripheral IV Care [RC] . DIRECTED 10/15/17 23:02 Head wo Cont [CT] Stat - Assessment/Plan Last 24 Hours: My Active Orders 10/15/17 23:00 Cardiac Monitoring [RC] . DIRECTED Sodium Chloride 0.9% [Normal Saline] 1,000 ml IV ASDIRECTED Sodium Chloride 0.9% [Saline Flush] 10 ml FLUSH ASDIRECTED PRN ED Antiemetic Medication Reflex [OM.PC] Stat Peripheral IV Insertion Adult [OM.PC] Stat 10/15/17 23:01 EKG Documentation Completion [RC] STAT Peripheral IV Care [RC] . DIRECTED 10/15/17 23:02 Head wo Cont [CT] Stat
--- NOTE | 2017-10-16 09:48 | CT ---
Head CT Technique: Multiple axial sections through the brain were obtained. Intravenous contrast was not utilized. Comparison: Prior MRI brain of 01/09/11. Findings: Ventricles along with basal cisterns and sulci over the convexities are mildly prominent. No abnormal parenchymal densities are seen. No evidence of intracranial hemorrhage. No midline shift or mass effect is seen. Mild atherosclerotic calcification is seen within the vertebral vessels and within the carotid siphon. Minimal basal ganglia calcification is incidentally noted. Bone window settings were reviewed which show the visualized sinuses to appear clear. No acute calvarial abnormality is identified. Impression: 1. Mild senescent change as noted above. 2. No acute intracranial abnormality is seen. Diagnostic code #2 I agree with preliminary report issued by [facility] ([facility] report finalized on 10/16/17, 1:20 AM Central Time)
== END 2017-10-16 00:46 | disposition home or self-care (01) ==
LOC: JD.ED 22:41
DX: R42 Dizziness and giddiness (principal); Z88.8 Allergy status to other drugs, medicaments and biological substances; Z79.82 Long term (current) use of aspirin; Z79.899 Other long term (current) drug therapy
CPT/HCPCS: 36415; 70450; 80053; 84484; 85025; 93005; 96361; 96374; 99284; A9270; J2405; J7040; J7050; 93010

== ENCOUNTER 2019-02-23 02:44 | Emergency (ER) | payer MEDICARE, OTHER ==
[2019-02-23 03:45] VITALS: BP 127/64; PULSE 86
--- NOTE | 2019-02-23 05:18 | EDM.PDOC ---
ED HPI GENERAL MEDICAL PROBLEM - General Chief Complaint: Genitourinary Problem Stated Complaint: BLADDER INFECTION Time Seen by Provider: 02/23/19 04:41 Source of Information: Reports: Patient, Family () History Limitations: Reports: No Limitations - History of Present Illness INITIAL COMMENTS - FREE TEXT/NARRATIVE: Mr. Schmidt is a very pleasant 83 year-old man with a past medical history significant for CAD, status-post three MIs, two 4-vessel CABGs and one coronary artery stent, on aspirin and Plavix, but no other anticoagulants, and BPH on tamsulosin, who states that he developed urinary urgency and dysuria on 02/20/2019, then a fever up to 102, along with generalized body aches, on 02/21/2019, then gross hematuria on 02/22/2019. He was seen at the walk-in clinic on Thursday, where a urinalysis was interpreted as the patient having a UTI. He was prescribed Keflex 500 mg BID x 10 days, which he has been taking as prescribed. He states that he has taken a total of 3 tablets of Keflex so far. The patient now presents to the ED stating that he has felt suprapubic pressure and the sensation that he cannot urinate for the past 3 days. No cough, dyspnea , or sore throat. The patient's PCP is Dr. Azael Patton. His Urologist is Dr. Cipriano Padilla. His Net Developer Architect is Dr. Jonathan Elizalde. The patient did receive an influenza vaccine this season. Suprapubic Pain Score (Numeric/FACES): 2 - Related Data Allergies Allergy/AdvReac Type Severity Reaction Status Date / Time promethazine HCl AdvReac Confusion Verified 02/23/19 03:45 [From Phenergan] propoxyphene napsylate AdvReac Confusion Verified 02/23/19 03:45 [From Darvocet-N] Home Meds: Home Meds Aspirin [Halfprin] 81 mg PO DAILY 02/14/14 [History] Levothyroxine 75 mcg PO DAILY 02/14/14 [History] Sertraline HCl 50 mg PO DAILY 02/14/14 [History] Cholecalciferol (Vitamin D3) [Vitamin D3] 1,000 unit PO DAILY 01/08/17 [History] Clopidogrel Bisulfate [Clopidogrel] 75 mg PO DAILY 01/20/17 [History] Isosorbide Mononitrate [Isosorbide Mononitrate ER] 60 mg PO DAILY 01/20/17 [ History] Pantoprazole Sodium 40 mg PO DAILY 01/20/17 [History] Ezetimibe [Zetia] 10 mg PO DAILY 02/06/17 [History] Clopidogrel [Plavix] 75 mg PO DAILY 08/27/17 [History] Rosuvastatin [Crestor] 5 mg PO DAILY 08/27/17 [History] Meclizine [Antivert] 25 mg PO Q6H PRN #20 tab 10/16/17 [Rx] Past Medical History HEENT History: Reports: Hard of Hearing, Impaired Vision Other HEENT History: wears glasses, has hearing aids Cardiovascular History: Reports: CAD, Heart Murmur, High Cholesterol, [place] (x 3) Gastrointestinal History: Reports: Diverticulosis, GERD, Hemorrhoids, Hiatal Hernia, PUD Genitourinary History: Reports: BPH Neurological History: Reports: Other (See Below) (Restless leg syndrome) Psychiatric History: Reports: Anxiety Endocrine/Metabolic History: Reports: Diabetes, Type II, Hypothyroidism - Past Surgical History HEENT Surgical History: Reports: Cataract Surgery (bilateral) Cardiovascular Surgical History: Reports: Coronary Artery Bypass (x 4-vessel, twice), Coronary Artery Stent (x 1, OM branch, 01/09/2017) GI Surgical History: Reports: Appendectomy, Colonoscopy (x 5), EGD (x 5), Hernia , Inguinal (bilateral), Other (See Below) (Exploratory laparotomy) Social & Family History - Family History Cardiac: Reports: CAD, [place] - Tobacco Use Smoking Status *Q: Former Smoker Years of Tobacco use: 20 Packs/Tins Daily: 0.5 Month/Year Tobacco Last Used: Quit 1970s Second Hand Smoke Exposure: No - Caffeine Use Caffeine Use: Reports: Coffee - Alcohol Use Alcohol Use History: Yes Alcohol Use Frequency: Socially - Recreational Drug Use Recreational Drug Use: No - Living Situation & Occupation Living situation: Reports: , with Spouse Occupation: Retired ED ROS GENERAL - Review of Systems Review Of Systems: Comprehensive ROS is negative, except as noted in HPI. ED EXAM, RENAL/ - Physical Exam Exam: See Below Exam Limited By: No Limitations General Appearance: Alert, WD/WN, No Apparent Distress Eye Exam: Bilateral Eye: EOMI, Normal Inspection Ears: Normal External Exam, Hearing Loss Nose: Normal Inspection Throat/Mouth: Normal Inspection, Normal Lips, Normal Voice, No Airway Compromise Head: Atraumatic, Normocephalic Neck: Normal Inspection, Full Range of Motion Respiratory/Chest: No Respiratory Distress, Lungs Clear, Normal Breath Sounds, No Accessory Muscle Use Cardiovascular: Normal Peripheral Pulses, Regular Rate, Rhythm, No Edema, No Gallop, No JVD, No Murmur, No Rub GI/Abdominal: Normal Bowel Sounds, Soft, Non-Tender (including suprapubically), No Organomegaly, No Distention, No Abnormal Bruit, No Mass (Male) Exam: Deferred Rectal (Males) Exam: Deferred Back Exam: Normal Inspection, Full Range of Motion. No: CVA Tenderness (L), CVA Tenderness (R) Extremities: Normal Inspection, Normal Range of Motion, No Pedal Edema, Normal Capillary Refill Neurological: Alert, Oriented, Normal Cognition, No Motor/Sensory Deficits Psychiatric: Normal Affect Skin Exam: Warm, Dry, Intact, Normal Color, No Rash Course - Vital Signs Last Recorded V/S: Last Vital Signs Temp 36.9 C 02/23/19 03:33 Pulse 86 02/23/19 03:33 Resp 20 02/23/19 03:33 BP 127/64 02/23/19 03:33 Pulse Ox 92 L 02/23/19 03:33 - Orders/Labs/Meds Labs: Laboratory Tests 02/23/19 Range/Units 03:56 Urine Color Kamala H (Yellow) Urine Appearance Slt cloudy H (Clear) Urine pH 6.0 (5.0-8.0) Ur Specific Hanson 1.025 (1.005-1.030) Urine Protein 1+ H (Negative) Urine Glucose (UA) 2+ H (Negative) Urine Ketones 2+ H (Negative) Urine Occult Blood 2+ H (Negative) Urine Nitrite Negative (Negative) Urine Bilirubin Negative (Negative) Urine Urobilinogen 0.2 (0.2-1.0) Ur Leukocyte Esterase Negative (Negative) Urine RBC 20-30 H (0-5) /hpf Urine WBC 0-5 (0-5) /hpf Ur Squamous Epith Cells 0-5 (0-5) /hpf Urine Bacteria Few (FEW) /hpf Urine Mucus Moderate H (FEW) /hpf - Re-Assessments/Exams Free Text/Narrative Re-Assessment/Exam: 02/23/19 05:12 The patient's urinalysis finds blood, but no other suggestion of a urinary tract infection. That is either because the patient never had a urinary tract infection, but was prescribed Keflex anyway, or because he did have a urinary tract infection, but was started on Keflex, which is the correct antibiotic. I suspect the latter. I am therefore recommending that he finish his 7-day course of Keflex. If he continues to have gross hematuria when the antibiotic is finished, he needs to follow-up with his Urologist for a cystoscopy to find the source of the bleeding, but if the hematuria resolves by the time he finishes his antibiotic, no further evaluation is necessary. With respect to the patient's urinary retention, the post-void bladder scan found 91 ml, which is well within acceptable limits. Departure - Departure Time of Disposition: 05:14 Disposition: Home, Self-Care 01 Condition: Good Clinical Impression: Urinary urgency, Gross hematuria - Discharge Information *PRESCRIPTION DRUG MONITORING PROGRAM REVIEWED*: Not Applicable *COPY OF PRESCRIPTION DRUG MONITORING REPORT IN PATIENT RIKA: Not Applicable Referrals: Azael Gatica MD [Primary Care Provider] - Cipriano Padilla MD [Physician] - Jonathan Elizalde MD [Ordering Only Provider] - Forms: ED Department Discharge Additional Instructions: You were seen in the emergency room for continued symptoms of bladder pressure and feeling like you cannot urinate. Workup in the ER included a urinalysis and a post-void bladder scan. Your urinalysis finds blood, but no other suggestion of a urinary tract infection. Your postvoid bladder scan found only 91 mL of retained urine, which is within acceptable limits. Based on your history, physical exam, and ER test, we suspect that you have a urinary tract infection, but that it is being adequately treated with the antibiotic Keflex that you were prescribed. We recommend that you finish the entire 7-day course of Keflex. Stay adequately hydrated. If you continue to have bloody urine after you have finished the Keflex, please follow-up with your Urologist, Dr. Cipriano Padilla, to arrange for a cystoscopy (scope of the urethra). If any other problems, please do not hesitate to return to the ER. Sepsis Event Note - Evaluation Sepsis Screening Result: No Definite Risk - Focused Exam Date Exam was Performed: 02/24/19 Time Exam was Performed: 22:20
== END 2019-02-23 05:30 | disposition home or self-care (01) ==
LOC: JD.ED 02:44
DX: R39.15 Urgency of urination (principal); R31.0 Gross hematuria; I25.10 Atherosclerotic heart disease of native coronary artery without angina pectoris; E11.9 Type 2 diabetes mellitus without complications; E78.00 Pure hypercholesterolemia, unspecified; I25.3 Aneurysm of heart; F41.9 Anxiety disorder, unspecified; Z79.82 Long term (current) use of aspirin; Z79.899 Other long term (current) drug therapy; Z88.8 Allergy status to other drugs, medicaments and biological substances; Z87.891 Personal history of nicotine dependence
CPT/HCPCS: 51798; 81001; 99281; 99284

== ENCOUNTER 2019-02-28 14:37 | Emergency (ER) | payer MEDICARE, OTHER ==
[2019-02-28 14:46] VITALS: BP 115/70; PULSE 67
--- NOTE | 2019-02-28 15:20 | EDM.PDOC ---
ED HPI GENERAL MEDICAL PROBLEM - General Chief Complaint: Genitourinary Problem Stated Complaint: CHECK CATHETER Time Seen by Provider: 02/28/19 14:43 Source of Information: Reports: Patient History Limitations: Reports: No Limitations - History of Present Illness INITIAL COMMENTS - FREE TEXT/NARRATIVE: She doesn't 83-year-old male who presents with his with complaints of occasionally having to urinate around his Suazo catheter. Patient has a history of BPH and is on tamsulosin. He states that he had a catheter placed in the clinic last Thursday for urinary retention. He has been having output into the bag, however occasionally he gets the urge to void and he has to for force himself to urinate around the catheter. He states that when this occurs he does still have urine in the catheter bag. He denies any blood or blood clots in his urine now or at this times when he has had to void around the catheter. - Related Data Allergies Allergy/AdvReac Type Severity Reaction Status Date / Time promethazine HCl AdvReac Confusion Verified 02/28/19 14:46 [From Phenergan] propoxyphene napsylate AdvReac Confusion Verified 02/28/19 14:46 [From Darvocet-N] Home Meds: Home Meds Aspirin [Halfprin] 81 mg PO DAILY 02/14/14 [History] Levothyroxine 75 mcg PO DAILY 02/14/14 [History] Sertraline HCl 50 mg PO DAILY 02/14/14 [History] Cholecalciferol (Vitamin D3) [Vitamin D3] 1,000 unit PO DAILY 01/08/17 [History] Clopidogrel Bisulfate [Clopidogrel] 75 mg PO DAILY 01/20/17 [History] Isosorbide Mononitrate [Isosorbide Mononitrate ER] 60 mg PO DAILY 01/20/17 [ History] Pantoprazole Sodium 40 mg PO DAILY 01/20/17 [History] Ezetimibe [Zetia] 10 mg PO DAILY 02/06/17 [History] Clopidogrel [Plavix] 75 mg PO DAILY 08/27/17 [History] Rosuvastatin [Crestor] 5 mg PO DAILY 08/27/17 [History] Meclizine [Antivert] 25 mg PO Q6H PRN #20 tab 10/16/17 [Rx] Past Medical History HEENT History: Reports: Hard of Hearing, Impaired Vision Other HEENT History: wears glasses, has hearing aids Cardiovascular History: Reports: CAD, Heart Murmur, High Cholesterol, [place] (x 3) Other Cardiovascular History: atherosclerosis, heart disease, 1st degree av block, pvcs, valvular incompetance, CABG Respiratory History: Reports: Sleep Apnea Other Respiratory History: asbestos exposure Gastrointestinal History: Reports: Diverticulosis, GERD, Hemorrhoids, Hiatal Hernia, PUD Other Gastrointestinal History: bloating, peptic ulcer, rectal bleeding, dyspepsia, erovise esophagitis, hiatal hernia Genitourinary History: Reports: BPH Other Genitourinary History: elevated PSA, hematuria INFORMATION SPECIALIST History: Reports: None Other Musculoskeletal History: restless leg syndrome Neurological History: Reports: Other (See Below) (Restless leg syndrome) Other Neuro History: restless leg syndrome Psychiatric History: Reports: Anxiety Endocrine/Metabolic History: Reports: Diabetes, Type II, Hypothyroidism Hematologic History: Reports: None Other Hematologic History: is on plavix and aspirin Immunologic History: Reports: None Oncologic (Cancer) History: Reports: None Dermatologic History: Reports: Other (See Below) Other Dermatologic History: actinic keratosis, seborrheic keratosis - Past Surgical History HEENT Surgical History: Reports: Cataract Surgery (bilateral) Cardiovascular Surgical History: Reports: Coronary Artery Bypass (x 4-vessel, twice), Coronary Artery Stent (x 1, OM branch, 01/09/2017) GI Surgical History: Reports: Appendectomy, Colonoscopy (x 5), EGD (x 5), Hernia , Inguinal (bilateral), Other (See Below) (Exploratory laparotomy) Social & Family History - Family History Cardiac: Reports: CAD, [place] - Caffeine Use Caffeine Use: Reports: Coffee - Living Situation & Occupation Living situation: Reports: , with Spouse Occupation: Retired ED ROS GENERAL - Review of Systems Review Of Systems: See Below Constitutional: Reports: No Symptoms HEENT: Reports: No Symptoms Respiratory: Reports: No Symptoms Cardiovascular: Reports: No Symptoms Endocrine: Reports: No Symptoms GI/Abdominal: Reports: No Symptoms : Reports: Urinary Retention Musculoskeletal: Reports: No Symptoms Skin: Reports: No Symptoms Neurological: Reports: No Symptoms Psychiatric: Reports: No Symptoms Hematologic/Lymphatic: Reports: No Symptoms Immunologic: Reports: No Symptoms ED EXAM, RENAL/ - Physical Exam Exam: See Below Exam Limited By: No Limitations General Appearance: Alert, WD/WN, No Apparent Distress Course - Vital Signs Last Recorded V/S: Last Vital Signs Temp 97.3 F 02/28/19 14:43 Pulse 67 02/28/19 14:43 Resp 18 02/28/19 14:43 BP 115/70 02/28/19 14:43 Pulse Ox 97 02/28/19 14:43 - Re-Assessments/Exams Free Text/Narrative Re-Assessment/Exam: The time of exam, the full catheter was draining appropriately. Patient did not have the urge to void. I did discuss with the patient that what is likely occurring is that somewhere along the line the tubing from the catheter to the bag becomes obstructed. I discussed that the differential for this is either that the tube is clogged within the bladder or that the tube was kinked further down the line. They did verbalize that when he has his leg bag on they feel like there is excessive tubing and it may become kinked. I did offer to remove the catheter and replace it with a slightly larger lumen, however they declined this option and stated that they did not want it changed. At this time we will irrigate the catheter and ensure that it is flowing patently. We will also deflate the balloon and reinflate with a slightly large amount of saline to get a better seal against the bladder wall. 02/28/19 15:32 RITO James did irrigate the catheter and trimmed down the catheter tubing so there is not an excess amount. Patient and his were also educated on bladder irrigation. Catheter is patent and flowing well at this time. One tiny blood clot was removed during the irrigation process We will send the patient home with in irrigation tray as well as the remaining sterile saline so that if it does seem to occlude again they can attempt irrigation. Discharge instructions as noted. Departure - Departure Time of Disposition: 15:34 Disposition: Home, Self-Care 01 Condition: Good Clinical Impression: Urinary retention - Discharge Information *PRESCRIPTION DRUG MONITORING PROGRAM REVIEWED*: No *COPY OF PRESCRIPTION DRUG MONITORING REPORT IN PATIENT RIKA: No Instructions: Indwelling Urinary Catheter Care, Adult, [id number] Referrals: Azael Gatica MD [Primary Care Provider] - Forms: ED Department Discharge Additional Instructions: You were seen in the emergency department today with intermittent urgency and urinating around her Suazo catheter. The catheter was irrigated and the tubing was trimmed. It is draining well at this time. We will send her home with a irrigation tray as well as the remaining sterile water. If the catheter should seem to occlude again, ensure that the tubing is not kinked between the penis and the bag. You may also try irrigating it with 50 mL's of sterile water. If it does not drain after irrigation or you having any other problems with it, please return to the emergency department. Follow-up with your urologist is currently scheduled. Sepsis Event Note - Evaluation Sepsis Screening Result: No Definite Risk - Focused Exam Vital Signs: Vital Signs Temp Pulse Resp BP Pulse Ox 02/28/19 14:43 97.3 F 67 18 115/70 97 Date Exam was Performed: 02/28/19 Time Exam was Performed: 15:32
== END 2019-02-28 16:20 | disposition home or self-care (01) ==
LOC: JD.ED 14:37
DX: R33.9 Retention of urine, unspecified (principal); I25.10 Atherosclerotic heart disease of native coronary artery without angina pectoris; E78.00 Pure hypercholesterolemia, unspecified; K21.9 Gastro-esophageal reflux disease without esophagitis; F41.9 Anxiety disorder, unspecified; E11.9 Type 2 diabetes mellitus without complications; E03.9 Hypothyroidism, unspecified; Z88.8 Allergy status to other drugs, medicaments and biological substances; Z79.82 Long term (current) use of aspirin; Z79.02 Long term (current) use of antithrombotics/antiplatelets; Z79.899 Other long term (current) drug therapy
CPT/HCPCS: 51798; 99281; 99283

== ENCOUNTER 2019-10-12 20:00 | Emergency (ER) | payer MEDICARE, OTHER ==
[2019-10-12 20:16] VITALS: BP 126/75; PULSE 57
--- NOTE | 2019-10-12 20:34 | EDM.PDOC ---
ED HPI GENERAL MEDICAL PROBLEM - General Chief Complaint: Upper Extremity Injury/Pain Stated Complaint: R ELBOW INJURY Time Seen by Provider: 10/12/19 20:17 Source of Information: Reports: Patient History Limitations: Reports: No Limitations - History of Present Illness INITIAL COMMENTS - FREE TEXT/NARRATIVE: Mr. Schmidt is a very pleasant 84-year-old gentleman with a past medical history significant for CAD, on both Plavix and a daily baby aspirin, who now presents the ED with a right elbow injury. He states that he was working on his tractor yesterday, 10/11/2019, when he slipped and fell, falling onto his right elbow, on concrete. He suffered an abrasion to the extensor surface of the elbow, to which he applied a Band-Aid. Today he noticed that there was in creased swelling to the extensor surface, although he continued to work throughout the day today, anyway. Here in the ED, the patient was initially found to be mildly bradycardic at 57 bpm, otherwise, he is hemodynamically stable, afebrile, saturating 96% on room air. Other than the right elbow injury, the patient denies having a recent fever, chills, sore throat, ear pain, nasal or sinus congestion, cough, dyspnea, chest pain, palpitations, nausea, vomiting, constipation, diarrhea, abdominal pain, urinary symptoms, recent weight gain or weight loss, recent bloody bowel movements or black bowel movements, recent joint aches, headaches, or rashes. The patient's PCP is Dr. Azael Patton. His Ironing Machine Operator is Dr. Jonathan Elizalde. His Urologist is Dr. Cipriano Padilla. Right Elbow Pain Score (Numeric/FACES): 3 - Related Data Allergies Allergy/AdvReac Type Severity Reaction Status Date / Time promethazine HCl AdvReac Confusion Verified 10/12/19 20:16 [From Phenergan] propoxyphene napsylate AdvReac Confusion Verified 10/12/19 20:16 [From Darvocet-N] Home Meds: Home Meds Aspirin [Halfprin] 81 mg PO DAILY 02/14/14 [History] Levothyroxine 75 mcg PO DAILY 02/14/14 [History] Sertraline HCl 50 mg PO DAILY 02/14/14 [History] Isosorbide Mononitrate [Isosorbide Mononitrate ER] 60 mg PO DAILY 01/20/17 [History] Pantoprazole Sodium 40 mg PO DAILY 01/20/17 [History] Ezetimibe [Zetia] 10 mg PO DAILY 02/06/17 [History] Clopidogrel [Plavix] 75 mg PO DAILY 08/27/17 [History] Rosuvastatin [Crestor] 5 mg PO DAILY 08/27/17 [History] Meclizine [Antivert] 25 mg PO Q6H PRN #20 tab 10/16/17 [Rx] Arginine [l-Arginine] 500 mg PO DAILY 02/28/19 [History] Dexlansoprazole [Dexilant] 30 mg PO DAILY 02/28/19 [History] Metoprolol Succinate 25 mg PO DAILY 02/28/19 [History] Tamsulosin [Flomax] 0.4 mg PO DAILY 02/28/19 [History] Past Medical History HEENT History: Reports: Hard of Hearing (wears hearing aids), Impaired Vision (wears glasses) Cardiovascular History: Reports: CAD, High Cholesterol, [place] (x 3) Respiratory History: Reports: Sleep Apnea Gastrointestinal History: Reports: Diverticulosis, GERD, Hemorrhoids, Hiatal Hernia, PUD Genitourinary History: Reports: BPH Psychiatric History: Reports: Anxiety, Other (See Below) (Restless leg syndrome) Endocrine/Metabolic History: Reports: Diabetes, Type II, Hypothyroidism - Past Surgical History HEENT Surgical History: Reports: Cataract Surgery (bilateral) Cardiovascular Surgical History: Reports: Coronary Artery Bypass (x 4 vessel, twice), Coronary Artery Stent (x 1 to OM branch, 01/09/2017) GI Surgical History: Reports: Appendectomy, Colonoscopy (x 5), EGD (x 5), Hernia, Inguinal (bilateral), Other (See Below) (Exploratory laparotomy) Social & Family History - Family History Cardiac: Reports: CAD, [place] - Tobacco Use Smoking Status *Q: Former Smoker Years of Tobacco use: 20 Packs/Tins Daily: 0.5 Month/Year Tobacco Last Used: Quit 1970s - Caffeine Use Caffeine Use: Reports: Coffee, Soda - Alcohol Use Alcohol Use History: Yes Alcohol Use Frequency: Socially - Recreational Drug Use Recreational Drug Use: No - Living Situation & Occupation Living situation: Reports: , with Spouse Occupation: Retired Review of Systems - Review of Systems Review Of Systems: Comprehensive ROS is negative, except as noted in HPI. ED EXAM, GENERAL - Physical Exam Exam: See Below Exam Limited By: No Limitations General Appearance: Alert, WD/WN, No Apparent Distress Extremities: Other (On inspection of the right upper extremity, there is an approximately 6 cm diameter area of fluctuant swelling over the extensor surface of the right elbow/proximal right forearm, which is tender to palpation. It is not ecchymotic, however, there is also an approximately 3 cm diameter abrasion to the extensor surface, within the area of swelling. No pain is induced in the elbow with compression of the proximal forearm, however, there may be some tenderness to palpation of the olecranon, but it is difficult to distinguish if this is due to soft tissue versus bony tenderness. The patient is able to freely fully flex and fully extend his right elbow without any limitations whatsoever. Neurovascular status of the right upper extremity is intact.) Course - Vital Signs Last Recorded V/S: Last Vital Signs Temp 36.4 C 10/12/19 20:12 Pulse 57 L 10/12/19 20:12 Resp 16 10/12/19 20:12 BP 126/75 10/12/19 20:12 Pulse Ox 96 10/12/19 20:12 - Orders/Labs/Meds Orders: Active Orders 24 hr Category Date Time Status Elbow Min 3V Rt [CR] Stat Exams 10/12/19 20:30 Taken - Re-Assessments/Exams Free Text/Narrative Re-Assessment/Exam: 10/12/19 20:31 As above, the patient fell 2 or 3 feet onto his right elbow on a concrete surface yesterday, merely abrading it at that time, but finding swelling of the elbow today. On examination, he has an approximately 6 cm diameter area of fluctuant swelling over the extensor surface/proximal right forearm, that is tender to palpation, however, I am not able to discern by physical examination if there is bony tenderness. I have ordered x-rays of the right elbow to evaluate. The patient declined an offer for pain medication. 10/12/19 21:45 3-view radiographs of the right elbow is read by vRjermaine as: 1. No fracture or dislocation. 2. Posterior soft tissue swelling over the olecranon and proximal ulna which could relate to soft tissue contusion or traumatic olecranon bursitis. No foreign body or underlying fracture. 3. 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 10/12/19 21:59 X-ray results discussed with the patient. I am recommending that he take [id number] Tylenol or ibuprofen as needed for discomfort, and to apply an ice pack as much as possible over the next couple of days to help minimize swelling. He may otherwise use his right arm as needed. Departure - Departure Time of Disposition: 21:59 Disposition: Home, Self-Care 01 Condition: Good Clinical Impression: Contusion of right elbow - Discharge Information *PRESCRIPTION DRUG MONITORING PROGRAM REVIEWED*: Not Applicable *COPY OF PRESCRIPTION DRUG MONITORING REPORT IN PATIENT RIKA: Not Applicable Instructions: Elbow Contusion Referrals: Azael Gatica MD [Primary Care Provider] - Cipriano Padilla MD [Ordering Only Provider] - Jonathan Elizalde MD [Ordering Only Provider] - Forms: ED Department Discharge Additional Instructions: You were seen in the emergency room after injuring your right elbow after a fall. Work-up in the ER included x-rays of your right elbow, which showed only soft tissue swelling with no bony injury. You do not have a broken elbow. We recommend that you take [id number] Tylenol or ibuprofen as needed for discomfort, and that you apply an ice pack to the swollen area of your right elbow as much as possible over the next 2 days, to help minimize swelling. You may use your right arm as tolerated. If any other problems, please do not hesitate to return to the ER. Sepsis Event Note (ED) - Evaluation Sepsis Screening Result: No Definite Risk - Focused Exam Vital Signs: Vital Signs Temp Pulse Resp BP Pulse Ox 10/12/19 20:12 36.4 C 57 L 16 126/75 96 - My Orders Last 24 Hours: My Active Orders 10/12/19 20:30 Elbow Min 3V Rt [CR] Stat - Assessment/Plan Last 24 Hours: My Active Orders 10/12/19 20:30 Elbow Min 3V Rt [CR] Stat
--- NOTE | 2019-10-13 08:54 | CR ---
Right elbow: 4 views of the right elbow were obtained. Comparison: No prior elbow exam. Posterior soft tissue swelling is noted. Deformity of the radial head is seen compatible with old fracture. Deformity of the coronoid process is also noted compatible with old fracture. There is joint space narrowing noted within the radiocapitellar joint. No joint effusion is seen. No acute fracture or other bony abnormality is appreciated. Impression: 1. Evidence of old injury. 2. Degenerative change. 3. Posterior soft tissue swelling. Note: If patient continues to be symptomatic, recommend repeat study in 10-14 days. Diagnostic code #2 This report was dictated in MDT I agree with preliminary report from [facility], finalized on 10/12/19, 10:38 PM Central Daylight Time
== END 2019-10-12 22:06 | disposition home or self-care (01) ==
LOC: JD.ED 20:00
DX: S50.01XA Contusion of right elbow, initial encounter (principal); I25.2 Old myocardial infarction; I25.10 Atherosclerotic heart disease of native coronary artery without angina pectoris; E78.00 Pure hypercholesterolemia, unspecified; K21.9 Gastro-esophageal reflux disease without esophagitis; N40.0 Benign prostatic hyperplasia without lower urinary tract symptoms; E11.9 Type 2 diabetes mellitus without complications; E03.9 Hypothyroidism, unspecified; F41.9 Anxiety disorder, unspecified; Z88.8 Allergy status to other drugs, medicaments and biological substances; Z79.82 Long term (current) use of aspirin; Z79.899 Other long term (current) drug therapy; Z87.891 Personal history of nicotine dependence; Z79.02 Long term (current) use of antithrombotics/antiplatelets; W01.0XXA Fall on same level from slipping, tripping and stumbling without subsequent striking against object, initial encounter
CPT/HCPCS: 73080-26-RT; 73080-RT; 99282; 99283-25

== ENCOUNTER 2020-08-24 16:54 | Emergency (ER) | payer MEDICARE, OTHER ==
[2020-08-24 17:11] VITALS: BP 120/62; PULSE 68
--- NOTE | 2020-08-24 19:14 | EDM.PDOC ---
ED HPI GENERAL MEDICAL PROBLEM - General Chief Complaint: Genitourinary Problem Stated Complaint: UNABLE TO URINATE NEEDS A CATHETER Time Seen by Provider: 08/24/20 17:07 Source of Information: Reports: Patient, Family, RN Notes Reviewed History Limitations: Reports: No Limitations - History of Present Illness INITIAL COMMENTS - FREE TEXT/NARRATIVE: Patient is an 85-year-old male presenting to the emergency department with complaints of urinary retention. He had a shoulder surgery done on Thursday in [place]. States that immediately after the surgery, he did have a problem with urinary retention, however he was able to void an equal amount of urine to what he was retaining, therefore he was discharged home. He is reports that since that time the retention has been getting progressively worse. He was up every hour during the night and only voiding a small amount. At this point he complains of suprapubic pressure and discomfort. 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 Denies any fever, chills, or any other infectious symptoms. Right Shoulder Pain Score (Numeric/FACES): 8 - Related Data Allergies Allergy/AdvReac Type Severity Reaction Status Date / Time promethazine HCl AdvReac Severe Confusion Verified 08/24/20 17:11 [From Phenergan] propoxyphene napsylate AdvReac Severe Confusion Verified 08/24/20 17:11 [From Darvocet-N] Home Meds: Home Meds Aspirin [Halfprin] 81 mg PO DAILY 02/14/14 [History] Levothyroxine 75 mcg PO DAILY 02/14/14 [History] Sertraline HCl 50 mg PO DAILY 02/14/14 [History] Isosorbide Mononitrate [Isosorbide Mononitrate ER] 60 mg PO DAILY 01/20/17 [History] Pantoprazole Sodium 40 mg PO DAILY 01/20/17 [History] Ezetimibe [Zetia] 10 mg PO DAILY 02/06/17 [History] Clopidogrel [Plavix] 75 mg PO DAILY 08/27/17 [History] Rosuvastatin [Crestor] 5 mg PO DAILY 08/27/17 [History] Meclizine [Antivert] 25 mg PO Q6H PRN #20 tab 10/16/17 [Rx] Arginine [l-Arginine] 500 mg PO DAILY 02/28/19 [History] Dexlansoprazole [Dexilant] 30 mg PO DAILY 02/28/19 [History] Metoprolol Succinate 25 mg PO DAILY 02/28/19 [History] Tamsulosin [Flomax] 0.4 mg PO DAILY 02/28/19 [History] Past Medical History HEENT History: Reports: Hard of Hearing, Impaired Vision Other HEENT History: wears glasses, has hearing aids Cardiovascular History: Reports: CAD, High Cholesterol, RI Other Cardiovascular History: atherosclerosis, heart disease, 1st degree av block, pvcs, valvular incompetance, CABG Respiratory History: Reports: Sleep Apnea Other Respiratory History: asbestos exposure Gastrointestinal History: Reports: Diverticulosis, GERD, Hemorrhoids, Hiatal Hernia, PUD Other Gastrointestinal History: bloating, peptic ulcer, rectal bleeding, dyspepsia, erovise esophagitis, hiatal hernia Genitourinary History: Reports: BPH Other Genitourinary History: elevated PSA, hematuria 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 Other Musculoskeletal History: restless leg syndrome Neurological History: Reports: Other (See Below) Other Neuro History: restless leg syndrome Psychiatric History: Reports: Anxiety, Other (See Below) Endocrine/Metabolic History: Reports: Diabetes, Type II, Hypothyroidism Hematologic History: Reports: None Other Hematologic History: is on plavix and aspirin Immunologic History: Reports: None Oncologic (Cancer) History: Reports: None Dermatologic History: Reports: Other (See Below) Other Dermatologic History: actinic keratosis, seborrheic keratosis - Infectious Disease History Infectious Disease History: Reports: None - Past Surgical History Head Surgeries/Procedures: Reports: None HEENT Surgical History: Reports: Cataract Surgery Cardiovascular Surgical History: Reports: Coronary Artery Bypass, Coronary Artery Stent GI Surgical History: Reports: Appendectomy, Colonoscopy, EGD, Hernia, Inguinal, Other (See Below) Musculoskeletal Surgical History: Reports: Shoulder Replacement Social & Family History - Family History Cardiac: Reports: CAD, RI - Tobacco Use Tobacco Use Status *Q: Former Tobacco User Used Tobacco, but Quit: Yes Month/Year Tobacco Last Used: 40 - Caffeine Use Caffeine Use: Reports: Soda - Recreational Drug Use Recreational Drug Use: No - Living Situation & Occupation Living situation: Reports: , with Spouse Occupation: Retired ED ROS GENERAL - Review of Systems Review Of Systems: See Below Constitutional: Reports: No Symptoms. Denies: Fever, Chills HEENT: Reports: No Symptoms Respiratory: Reports: No Symptoms Cardiovascular: Reports: No Symptoms Endocrine: Reports: No Symptoms GI/Abdominal: Reports: No Symptoms : Reports: Pain, Urinary Retention Musculoskeletal: Reports: Other (Right shoulder discomfort. Sling and swath splint in place.) Skin: Reports: No Symptoms Neurological: Reports: No Symptoms Psychiatric: Reports: No Symptoms Hematologic/Lymphatic: Reports: No Symptoms Immunologic: Reports: No Symptoms ED EXAM, RENAL/ - Physical Exam Exam: See Below Exam Limited By: No Limitations General Appearance: Alert, WD/WN, No Apparent Distress Respiratory/Chest: No Respiratory Distress, Lungs Clear, Normal Breath Sounds, No Accessory Muscle Use, Chest Non-Tender Cardiovascular: Normal Peripheral Pulses, Regular Rate, Rhythm, No Edema, No Gallop, No JVD, No Murmur, No Rub GI/Abdominal: Normal Bowel Sounds, Soft, No Organomegaly, No Distention, No Abnormal Bruit, No Mass, Other (Suprapubic tenderness and discomfort. Palpable, full bladder.) Extremities: Other (Sling and swath in place to right upper extremity) Neurological: Alert, Oriented, CN II-XII Intact, Normal Cognition, Normal Gait, Normal Reflexes, No Motor/Sensory Deficits Psychiatric: Normal Affect, Normal Mood Skin Exam: Warm, Dry, Intact, Normal Color, No Rash Course - Vital Signs Last Recorded V/S: Last Vital Signs Temp 98.1 F 08/24/20 17:09 Pulse 68 08/24/20 17:09 Resp 20 08/24/20 17:09 BP 120/62 08/24/20 17:09 Pulse Ox 87 L 08/24/20 17:09 - Orders/Labs/Meds Labs: Laboratory Tests 08/24/20 08/24/20 08/24/20 Range/Units 18:20 18:32 18:32 WBC 13.94 H (4.23-9.07) K/mm3 RBC 4.52 L (4.63-6.08) M/mm3 Hgb 14.1 D (13.7-17.5) gm/dl Hct 42.9 (40.1-51.0) % MCV 94.9 H (79.0-92.2) fl MCH 31.2 (25.7-32.2) pg MCHC 32.9 (32.2-35.5) g/dl RDW Std Deviation 45.5 H (35.1-43.9) fL Plt Count 176 (163-337) K/mm3 MPV 11.5 (9.4-12.3) fl Neut % (Auto) 70.8 H (34.0-67.9) % Lymph % (Auto) 9.3 L (21.8-53.1) % [place] % (Auto) 17.7 H (5.3-12.2) % Eos % (Auto) 1.8 (0.8-7.0) Baso % (Auto) 0.1 (0.1-1.2) % Neut # (Auto) 9.88 H (1.78-5.38) K/mm3 Lymph # (Auto) 1.29 L (1.32-3.57) K/mm3 [place] # (Auto) 2.47 H (0.30-0.82) K/mm3 Eos # (Auto) 0.25 (0.04-0.54) K/mm3 Baso # (Auto) 0.01 (0.01-0.08) K/mm3 Manual Slide Review Abnormal smear Sodium 130 L D (136-145) mEq/L Potassium 3.6 (3.5-5.1) mEq/L Chloride 97 L (98-107) mEq/L Carbon Dioxide 25 (21-32) mEq/L Anion Gap 11.6 (5-15) BUN 20 H (7-18) mg/dL Creatinine 1.2 (0.7-1.3) mg/dL Est Cr Clr Drug Dosing 39.06 mL/min Estimated GFR (MDRD) 58 (>60) mL/min BUN/Creatinine Ratio 16.7 (14-18) Glucose 144 H (70-99) mg/dL Calcium 8.5 (8.5-10.1) mg/dL Total Bilirubin 0.5 (0.2-1.0) mg/dL AST 25 (15-37) U/L ALT 25 (16-63) U/L Alkaline Phosphatase 62 (46-116) U/L Total Protein 6.1 L (6.4-8.2) g/dl Albumin 2.9 L (3.4-5.0) g/dl Globulin 3.2 gm/dL Albumin/Globulin Ratio 0.9 L (1-2) Urine Color Yellow (Yellow) Urine Appearance Clear (Clear) Urine pH 6.5 (5.0-8.0) Ur Specific [place] 1.015 (1.005-1.030) Urine Protein Negative (Negative) Urine Glucose (UA) 3+ H (Negative) Urine Ketones Negative (Negative) Urine Occult Blood Trace-intact H (Negative) Urine Nitrite Negative (Negative) Urine Bilirubin Negative (Negative) Urine Urobilinogen 0.2 (0.2-1.0) Ur Leukocyte Esterase Negative (Negative) Urine RBC 0-5 (0-5) /hpf Urine WBC 0-5 (0-5) /hpf Ur Squamous Epith Cells 0-5 (0-5) /hpf Urine Bacteria Rare (FEW) /hpf Urine Mucus Rare (FEW) /hpf - Re-Assessments/Exams Free Text/Narrative Re-Assessment/Exam: Patient is an 85-year-old male presenting to the emergency department with comp laints of urinary retention after having shoulder surgery completed on Thursday. Bladder scan was completed on triage and showed greater than 598 mils of urine in the bladder. I have ordered Suazo catheter insertion. Also ordered blood work and urinalysis. 08/24/20 19:10 Hematology was significant for WBC elevated at 13.94, sodium low at 130, chloride low at 97, BUN 20. Urinalysis was negative for infection. Approximate 700 mils of urine was returned with catheter insertion. Patient has been converted to a leg bag. There is no evidence of infection. Elevated white blood cells is likely stress response due to discomfort and recent surgery patient reports that he drinks quite a bit of plain water. Recommend that he switch to liquids that containing electrolytes including Gatorade, Powerade, and propel to help bring his sodium level up. He does have an appointment scheduled with Dayton Joy NP on Thursday. At that time, he will likely be ready to have his catheter removed. Sodium levels may also be rechecked at that time. Discharge instructions as documented. Departure - Departure Time of Disposition: 19:12 Disposition: Home, Self-Care 01 Condition: Good Clinical Impression: Urinary retention, Hyponatremia - Discharge Information *PRESCRIPTION DRUG MONITORING PROGRAM REVIEWED*: No *COPY OF PRESCRIPTION DRUG MONITORING REPORT IN PATIENT RIKA: No Instructions: Indwelling Urinary Catheter Care, Adult Referrals: Azael Gatica MD [Primary Care Provider] - Forms: ED Department Discharge Additional Instructions: You were seen in the emergency department today for urinary retention after having surgery on Thursday. Suazo catheter was inserted and returned approximately 700 mils of urine which you were retaining. Blood work and urinalysis were completed. Results of your blood work show that she did have a mildly elevated white blood cell count which may be related to your surgery or stress response related to your discomfort. Your sodium was also found to be low. Recommend that you change from drinking plain water to liquids that contain electrolytes such as Gatorade, Powerade, or propel. Follow-up at your appointment on Thursday as scheduled. At that time, they may attempt to remove the catheter and I would also recommend that your blood work be repeated to check your sodium. If you should experience any difficulties over the weekend, please not hesitate to return to the emergency department for reevaluation. Sepsis Event Note (ED) - Evaluation Sepsis Screening Result: No Definite Risk
== END 2020-08-24 19:20 | disposition home or self-care (01) ==
LOC: JD.ED 16:54
DX: R33.9 Retention of urine, unspecified (principal); E87.1 Hypo-osmolality and hyponatremia; I25.10 Atherosclerotic heart disease of native coronary artery without angina pectoris; E78.00 Pure hypercholesterolemia, unspecified; I10 Essential (primary) hypertension; K21.9 Gastro-esophageal reflux disease without esophagitis; Z87.891 Personal history of nicotine dependence; Z79.82 Long term (current) use of aspirin
CPT/HCPCS: 36415; 51702; 80053; 81001; 85025; 99283; 99284-25

== ENCOUNTER 2020-12-24 05:52 | Emergency (ER) | payer MEDICARE, OTHER ==
[2020-12-24] MEDS ORDERED: Sodium Chloride 0.9% 10 ML Syringe FLUSH PRN (06:44)
--- NOTE | 2020-12-24 08:13 | CR ---
Chest: Portable view of the chest was obtained. Comparison: Prior chest x-ray of 01/08/17. Heart size and mediastinum are normal. Lungs are clear with no acute parenchymal change. Right shoulder prosthesis is noted. Prior left shoulder surgery is seen. Impression: 1. Nothing acute is seen on portable chest x-ray. Diagnostic code #2
--- NOTE | 2020-12-24 08:19 | EDM.PDOC ---
ED HPI GENERAL MEDICAL PROBLEM - General Chief Complaint: Respiratory Problem Stated Complaint: FEVER/BODY ACHE/SOB Time Seen by Provider: 12/24/20 06:38 Source of Information: Reports: Patient History Limitations: Reports: No Limitations - History of Present Illness INITIAL COMMENTS - FREE TEXT/NARRATIVE: The patient presents with a cough, shortness of breath, fever and body aches. This has been going on for about 5 days. He also has been having some chest pain at times. He has no chest pain now and his fever his gone. He has been immunized for COVID 19 X 3 doses. He has no abdominal pain, nausea, vomiting or diarrhea. He has a history of heart disease. He had an RI with CABG. Onset: Gradual Duration: Day(s): (5) Location: Reports: Chest, Generalized Quality: Reports: Ache Severity: Mild Improves with: Reports: None Worsens with: Reports: None Associated Symptoms: Reports: Chest Pain, Cough, Fever/Chills, Shortness of Breath. Denies: Headaches, Nausea/Vomiting - Related Data Allergies Allergy/AdvReac Type Severity Reaction Status Date / Time promethazine HCl AdvReac Severe Confusion Verified 08/24/20 17:11 [From Phenergan] propoxyphene napsylate AdvReac Severe Confusion Verified 08/24/20 17:11 [From Darvocet-N] Home Meds: Home Meds Aspirin [Halfprin] 81 mg PO DAILY 02/14/14 [History] Levothyroxine 75 mcg PO DAILY 02/14/14 [History] Sertraline HCl 50 mg PO DAILY 02/14/14 [History] Isosorbide Mononitrate [Isosorbide Mononitrate ER] 60 mg PO DAILY 01/20/17 [Hi story] Pantoprazole Sodium 40 mg PO DAILY 01/20/17 [History] Ezetimibe [Zetia] 10 mg PO DAILY 02/06/17 [History] Clopidogrel [Plavix] 75 mg PO DAILY 08/27/17 [History] Rosuvastatin [Crestor] 5 mg PO DAILY 08/27/17 [History] Meclizine [Antivert] 25 mg PO Q6H PRN #20 tab 10/16/17 [Rx] Arginine [l-Arginine] 500 mg PO DAILY 02/28/19 [History] Dexlansoprazole [Dexilant] 30 mg PO DAILY 02/28/19 [History] Metoprolol Succinate 25 mg PO DAILY 02/28/19 [History] Tamsulosin [Flomax] 0.4 mg PO DAILY 02/28/19 [History] Past Medical History HEENT History: Reports: Hard of Hearing, Impaired Vision Other HEENT History: wears glasses, has hearing aids Cardiovascular History: Reports: CAD, High Cholesterol, RI Other Cardiovascular History: atherosclerosis, heart disease, 1st degree av block, pvcs, valvular incompetance, CABG Respiratory History: Reports: Sleep Apnea Other Respiratory History: asbestos exposure Gastrointestinal History: Reports: Diverticulosis, GERD, Hemorrhoids, Hiatal Hernia, PUD Other Gastrointestinal History: bloating, peptic ulcer, rectal bleeding, dyspepsia, erovise esophagitis, hiatal hernia Genitourinary History: Reports: BPH Other Genitourinary History: elevated PSA, hematuria 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 Other Musculoskeletal History: restless leg syndrome Neurological History: Reports: Other (See Below) Other Neuro History: restless leg syndrome Psychiatric History: Reports: Anxiety, Other (See Below) Endocrine/Metabolic History: Reports: Diabetes, Type II, Hypothyroidism Hematologic History: Reports: None Other Hematologic History: is on plavix and aspirin Immunologic History: Reports: None Oncologic (Cancer) History: Reports: None Dermatologic History: Reports: Other (See Below) Other Dermatologic History: actinic keratosis, seborrheic keratosis - Infectious Disease History Infectious Disease History: Reports: None - Past Surgical History Head Surgeries/Procedures: Reports: None HEENT Surgical History: Reports: Cataract Surgery Cardiovascular Surgical History: Reports: Coronary Artery Bypass, Coronary Artery Stent GI Surgical History: Reports: Appendectomy, Colonoscopy, EGD, Hernia, Inguinal, Other (See Below) Musculoskeletal Surgical History: Reports: Shoulder Replacement Social & Family History - Family History Family Medical History: No Pertinent Family History Cardiac: Reports: CAD, RI - Tobacco Use Tobacco Use Status *Q: Former Tobacco User Used Tobacco, but Quit: Yes Month/Year Tobacco Last Used: 07/1980 - Caffeine Use Caffeine Use: Reports: Soda Caffeine Use Comment: minimal - Recreational Drug Use Recreational Drug Use: No - Living Situation & Occupation Living situation: Reports: , with Spouse Occupation: Retired ED ROS GENERAL - Review of Systems Review Of Systems: See Below Constitutional: Reports: Fever, Chills, Malaise, Weakness HEENT: Reports: No Symptoms Respiratory: Reports: Shortness of Breath, Cough Cardiovascular: Reports: Chest Pain Endocrine: Reports: No Symptoms GI/Abdominal: Reports: No Symptoms : Reports: No Symptoms Musculoskeletal: Reports: Muscle Pain ED EXAM, GENERAL - Physical Exam Exam: See Below Exam Limited By: No Limitations General Appearance: Alert, No Apparent Distress Ears: Normal External Exam Nose: Normal Inspection Head: Atraumatic, Normocephalic Neck: Normal Inspection Respiratory/Chest: No Respiratory Distress, Lungs Clear, Normal Breath Sounds Cardiovascular: Regular Rate, Rhythm, No Edema, No Murmur GI/Abdominal: Soft, Non-Tender, No Organomegaly, No Mass Back Exam: Normal Inspection Extremities: Normal Inspection #1 Interpretation EKG Date: 12/24/20 Time: 06:28 Rhythm: NSR Rate (Beats/Min): 75 [place]: Normal P-Wave: Present QRS: Normal ST-T: Normal QT: Normal Course - Vital Signs Last Recorded V/S: Last Vital Signs Temp 97.6 F 12/24/20 06:31 Pulse 76 12/24/20 06:31 Resp 20 12/24/20 06:31 BP 116/73 12/24/20 06:31 Pulse Ox 96 12/24/20 06:44 - Orders/Labs/Meds Orders: Active Orders 24 hr Category Date Time Status Cardiac Monitoring [RC] . DIRECTED Care 12/24/20 06:44 Active Oxygen Therapy [RC] PRN Care 12/24/20 06:44 Active Peripheral IV Care [RC] . DIRECTED Care 12/24/20 06:44 Active Sodium Chloride 0.9% [Saline Flush] Med 12/24/20 06:44 Active 10 ml FLUSH ASDIRECTED PRN Peripheral IV Insertion Adult [OM.PC] Stat Oth 12/24/20 06:44 Ordered EKG 12 Lead [EK] Stat Ther 12/24/20 06:23 Ordered Medication Orders Sodium Chloride (Sodium Chloride 0.9% 10 Ml Syringe) 10 ml FLUSH ASDIRECTED PRN PRN Reason: Keep Vein Open Last Admin: 12/24/20 06:50 Dose: 10 ml Documented by: CHERIE Labs: Laboratory Tests 12/24/20 12/24/20 12/24/20 Range/Units 06:22 06:40 06:40 WBC 8.34 (4.23-9.07) K/mm3 RBC 5.27 (4.63-6.08) M/mm3 Hgb 15.5 D (13.7-17.5) gm/dl Hct 48.3 (40.1-51.0) % MCV 91.7 (79.0-92.2) fl MCH 29.4 (25.7-32.2) pg MCHC 32.1 L (32.2-35.5) g/dl RDW Std Deviation 46.5 H (35.1-43.9) fL Plt Count 231 D (163-337) K/mm3 MPV 11.6 (9.4-12.3) fl Neut % (Auto) 64.4 (34.0-67.9) % Lymph % (Auto) 16.3 L (21.8-53.1) % [place] % (Auto) 17.5 H (5.3-12.2) % Eos % (Auto) 1.6 (0.8-7.0) Baso % (Auto) 0.1 (0.1-1.2) % Neut # (Auto) 5.37 (1.78-5.38) K/mm3 Lymph # (Auto) 1.36 (1.32-3.57) K/mm3 [place] # (Auto) 1.46 H (0.30-0.82) K/mm3 Eos # (Auto) 0.13 (0.04-0.54) K/mm3 Baso # (Auto) 0.01 (0.01-0.08) K/mm3 PT 11.3 (9.7-12.0) SECONDS INR 1.02 APTT 26.5 (21.7-31.4) SECONDS D-Dimer, Quantitative 0.97 H (0.19-0.50) mg/L Sodium (136-145) mEq/L Potassium (3.5-5.1) mEq/L Chloride (98-107) mEq/L Carbon Dioxide (21-32) mEq/L Anion Gap (5-15) BUN (7-18) mg/dL Creatinine (0.7-1.3) mg/dL Est Cr Clr Drug Dosing mL/min Estimated GFR (MDRD) (>60) mL/min BUN/Creatinine Ratio (14-18) Glucose (70-99) mg/dL Calcium (8.5-10.1) mg/dL Total Bilirubin (0.2-1.0) mg/dL AST (15-37) U/L ALT (16-63) U/L Alkaline Phosphatase (46-116) U/L Troponin I (0.00-0.056) ng/mL C-Reactive Protein (<1.0) mg/dL Total Protein (6.4-8.2) g/dl Albumin (3.4-5.0) g/dl Globulin gm/dL Albumin/Globulin Ratio (1-2) Influenza Type A RNA Negative (NEGATIVE) Influenza Type B RNA Negative (NEGATIVE) SARS-CoV-2 RNA (JEREMI) Negative (NEGATIVE) 12/24/20 Range/Units 06:40 WBC (4.23-9.07) K/mm3 RBC (4.63-6.08) M/mm3 Hgb (13.7-17.5) gm/dl Hct (40.1-51.0) % MCV (79.0-92.2) fl MCH (25.7-32.2) pg MCHC (32.2-35.5) g/dl RDW Std Deviation (35.1-43.9) fL Plt Count (163-337) K/mm3 MPV (9.4-12.3) fl Neut % (Auto) (34.0-67.9) % Lymph % (Auto) (21.8-53.1) % [place] % (Auto) (5.3-12.2) % Eos % (Auto) (0.8-7.0) Baso % (Auto) (0.1-1.2) % Neut # (Auto) (1.78-5.38) K/mm3 Lymph # (Auto) (1.32-3.57) K/mm3 [place] # (Auto) (0.30-0.82) K/mm3 Eos # (Auto) (0.04-0.54) K/mm3 Baso # (Auto) (0.01-0.08) K/mm3 PT (9.7-12.0) SECONDS INR APTT (21.7-31.4) SECONDS D-Dimer, Quantitative (0.19-0.50) mg/L Sodium 137 (136-145) mEq/L Potassium 4.0 (3.5-5.1) mEq/L Chloride 103 (98-107) mEq/L Carbon Dioxide 25 (21-32) mEq/L Anion Gap 13.0 (5-15) BUN 21 H (7-18) mg/dL Creatinine 1.2 (0.7-1.3) mg/dL Est Cr Clr Drug Dosing 37.47 mL/min Estimated GFR (MDRD) 58 (>60) mL/min BUN/Creatinine Ratio 17.5 (14-18) Glucose 121 H (70-99) mg/dL Calcium 9.0 (8.5-10.1) mg/dL Total Bilirubin 0.4 (0.2-1.0) mg/dL AST 23 (15-37) U/L ALT 28 (16-63) U/L Alkaline Phosphatase 69 (46-116) U/L Troponin I < 0.017 (0.00-0.056) ng/mL C-Reactive Protein < 0.2 (<1.0) mg/dL Total Protein 7.0 (6.4-8.2) g/dl Albumin 3.4 (3.4-5.0) g/dl Globulin 3.6 gm/dL Albumin/Globulin Ratio 0.9 L (1-2) Influenza Type A RNA (NEGATIVE) Influenza Type B RNA (NEGATIVE) SARS-CoV-2 RNA (JEREMI) (NEGATIVE) Meds: Medications Generic Name Dose Route Start Last Admin Trade Name Freq PRN Reason Stop Dose Admin Sodium Chloride 10 ml 12/24/20 06:44 12/24/20 06:50 Sodium Chloride 0.9% 10 Ml Syringe FLUSH 10 ml ASDIRECTED PRN Administration Keep Vein Open - Re-Assessments/Exams Free Text/Narrative Re-Assessment/Exam: 12/24/20 08:31 I ordered an IV saline lock, EKG, CXR, labs and COVID 19. His EKG shows a NSR with no acute changes. His CXR shows nothing acute. His CBC looks good. His D-dimer was slightly elevated at 0.97. His PT and PTT look good. His CMP looks good. His troponin is negative. His CRP is negative. I am waiting for the COVID 19 swab. 12/24/20 09:00 The COVID and influenza are negative. 12/24/20 09:08 He feels better. I will discharge him home. He said he had a hard session of PT on Thursday and he wonders if that was the problem. This could be. I will discharge him home. Departure - Departure Time of Disposition: 09:10 Disposition: Home, Self-Care 01 Condition: Good Clinical Impression: Atypical chest pain, Muscle soreness - Discharge Information *PRESCRIPTION DRUG MONITORING PROGRAM REVIEWED*: Not Applicable *COPY OF PRESCRIPTION DRUG MONITORING REPORT IN PATIENT RIKA: Not Applicable Referrals: Azael Hanson MD [Primary Care Provider] - 1 Week Forms: ED Department Discharge Additional Instructions: Drink plenty of fluids. Take tylenol or motrin for any pain. Take your medications as prescribed. Please return if you are worse. Follow up with Dr Hanson within a week. Sepsis Event Note (ED) - Evaluation Sepsis Screening Result: No Definite Risk - Focused Exam Vital Signs: Vital Signs Temp Pulse Resp BP Pulse Ox Pulse Ox 12/24/20 06:44 96 12/24/20 06:31 97.6 F 76 20 116/73 92 L - My Orders Last 24 Hours: My Active Orders 12/24/20 06:23 EKG 12 Lead [EK] Stat 12/24/20 06:44 Cardiac Monitoring [RC] . DIRECTED Oxygen Therapy [RC] PRN Peripheral IV Care [RC] . DIRECTED Sodium Chloride 0.9% [Saline Flush] 10 ml FLUSH ASDIRECTED PRN Peripheral IV Insertion Adult [OM.PC] Stat - Assessment/Plan Last 24 Hours: My Active Orders 12/24/20 06:23 EKG 12 Lead [EK] Stat 12/24/20 06:44 Cardiac Monitoring [RC] . DIRECTED Oxygen Therapy [RC] PRN Peripheral IV Care [RC] . DIRECTED Sodium Chloride 0.9% [Saline Flush] 10 ml FLUSH ASDIRECTED PRN Peripheral IV Insertion Adult [OM.PC] Stat
[2020-12-24 08:49] LABS: CORONAVIRUS COVID-19 NAA NEGATIVE (NEGATIVE)
[2020-12-24 09:11] VITALS: PULSE 75
[2020-12-24 09:14] VITALS: BP 119/56
== END 2020-12-24 09:20 | disposition home or self-care (01) ==
LOC: JD.ED 05:52
DX: R07.89 Other chest pain (principal); M79.10 Myalgia, unspecified site; I25.10 Atherosclerotic heart disease of native coronary artery without angina pectoris; E78.00 Pure hypercholesterolemia, unspecified; I25.2 Old myocardial infarction; K21.9 Gastro-esophageal reflux disease without esophagitis; E11.9 Type 2 diabetes mellitus without complications; Z79.82 Long term (current) use of aspirin; Z79.899 Other long term (current) drug therapy; Z88.8 Allergy status to other drugs, medicaments and biological substances; Z87.891 Personal history of nicotine dependence; Z20.822 Contact with and (suspected) exposure to COVID-19
CPT/HCPCS: 0240U; 36415; 71045; 80053; 84484; 85025; 85379; 85610; 85730; 86140; 93005; 99285

== ENCOUNTER 2022-08-04 00:31 | Emergency (ER) | payer MEDICARE ==
[2022-08-04 00:43] VITALS: BP 138/66; PULSE 63
[2022-08-04] MEDS ORDERED: Alum Hydrox/Mag Hydrox/Simeth 30 ML, Lidocaine 2% 15 ML PO ONE ×2 (01:18)
[2022-08-04] MEDS ORDERED: Pantoprazole 40 MG Tab.CR PO ONE (01:18)
== END 2022-08-04 02:08 | disposition home or self-care (01) ==
LOC: JD.ED 00:31
DX: K21.00 Gastro-esophageal reflux disease with esophagitis, without bleeding (principal); K44.9 Diaphragmatic hernia without obstruction or gangrene; I25.10 Atherosclerotic heart disease of native coronary artery without angina pectoris; I25.2 Old myocardial infarction; E78.00 Pure hypercholesterolemia, unspecified; E11.9 Type 2 diabetes mellitus without complications; E03.9 Hypothyroidism, unspecified; Z79.82 Long term (current) use of aspirin; Z88.8 Allergy status to other drugs, medicaments and biological substances; Z79.02 Long term (current) use of antithrombotics/antiplatelets; Z79.899 Other long term (current) drug therapy
CPT/HCPCS: 99283; A9270

== ENCOUNTER 2024-01-19 09:12 | Day surgery (SDC) | payer MEDICARE, OTHER ==
[2024-01-19] MEDS: Lactated Ringers 1,000 ML IV SCH (10:30)
[2024-01-19] MEDS ORDERED: Propofol 200 MG/20 ML SDV ONE (10:47)
[2024-01-19 14:04] VITALS: BP 128/63; PULSE 57
[2024-01-19] MEDS ORDERED: Sodium Chloride 0.9% 10 ML Syringe FLUSH SCH (21:00)
== END 2024-01-19 13:45 | disposition home or self-care (01) ==
LOC: JD.SDS 09:12
PROVIDERS: ATTEND Surgery
DX: K29.50 Unspecified chronic gastritis without bleeding (principal); K44.9 Diaphragmatic hernia without obstruction or gangrene; K21.9 Gastro-esophageal reflux disease without esophagitis; E11.22 Type 2 diabetes mellitus with diabetic chronic kidney disease; N18.30 Chronic kidney disease, stage 3 unspecified; F41.9 Anxiety disorder, unspecified; E03.9 Hypothyroidism, unspecified; Z79.82 Long term (current) use of aspirin; Z79.890 Hormone replacement therapy; Z79.899 Other long term (current) drug therapy; Z88.8 Allergy status to other drugs, medicaments and biological substances
CPT/HCPCS: 43239; 88305; J2704; J7120; 00731; 99100

== ENCOUNTER 2024-02-03 21:22 | Emergency (ER) | payer MEDICARE, OTHER ==
[2024-02-03] MEDS ORDERED: Sodium Chloride 0.9% 10 ML Syringe FLUSH PRN (22:02)
[2024-02-03 22:21] LABS: BASOPHILS PERCENT AUTO 0.2 % (0.0-1.0); EOSINOPHILS ABSOLUTE AUTO 0.2 K/mm3 (0.0-0.4); EOSINOPHILS PERCENT AUTO 1.4 % (0.0-6.0); HEMATOCRIT 37.7 % (42.0-52.0); HEMOGLOBIN 12.7 gm/dl (14.0-18.0); IMMATURE GRAN ABSOLUTE AUTO 0.03 K/mm3 (0.00-0.05); IMMATURE GRAN PERCENT AUTO 0.3 % (0.0-0.4); LYMPHOCYTES ABSOLUTE AUTO 1.5 K/mm3 (1.0-4.8); LYMPHOCYTES PERCENT AUTO 12.5 % (24.0-44.0); MEAN CORPUSCULAR HEMOGLOBIN 32.2 pg (28.0-32.0); MEAN CORPUSCULAR HGB CONC 33.7 g/dl (32.0-36.0); MEAN CORPUSCULAR VOLUME 95.4 fl (83.0-99.0); MEAN PLATELET VOLUME 11.3 fl (9.4-12.4); MONOCYTES ABSOLUTE AUTO 1.2 K/mm3 (0.0-0.8); MONOCYTES PERCENT AUTO 9.8 % (0.0-8.0); NEUTROPHILS PERCENT AUTO 75.8 % (41.0-71.0); PLATELET COUNT,PLT 210 K/mm3 (150-400); RED BLOOD CELL COUNT 3.95 M/mm3 (4.52-5.90); WHITE BLOOD CELL COUNT,WBC 11.91 K/mm3 (3.9-11.3)
[2024-02-03 22:46] LABS: A/G RATIO 1.3 (1-2); ALBUMIN 3.5 g/dl (3.4-5.0); ANION GAP 11.9 (5-15); BILIRUBIN TOTAL 0.4 mg/dL (0.2-1.0); CALCIUM 8.6 mg/dL (8.5-10.1); CREATININE 1.1 mg/dL (0.7-1.3); EST CRCL DRUG DOSING (CG) 37.3 mL/min; LACTIC ACID 0.6 mmol/L (0.4-2.0); POTASSIUM,K 3.9 mEq/L (3.5-5.1); PROTEIN TOTAL,TP 6.3 g/dl (6.4-8.2)
[2024-02-03 23:15] LABS: APPEARANCE,URINE CLEAR (Clear); BILIRUBIN,URINE NEGATIVE (Negative); COLOR,URINE YELLOW (Yellow); GLUCOSE,URINE NEGATIVE (Negative); KETONES,URINE NEGATIVE (Negative); LEUKOCYTE ESTERASE,URINE NEGATIVE (Negative); NITRITE,URINE NEGATIVE (Negative); OCCULT BLOOD,URINE TRACE-INTACT (Negative); PROTEIN,URINE NEGATIVE (Negative); UROBILINOGEN,URINE 0.2 (0.2-1.0)
[2024-02-03] MEDS: Sodium Chloride 0.9% 1,000 ML IV ONE (23:19)
[2024-02-03 23:38] LABS: BACTERIA,URINE RARE /hpf (FEW); EPITHELIAL CELLS,URINE 0-5 /hpf (0-5); MUCUS,URINE FEW /hpf (FEW); RBC,URINE 0-5 /hpf (0-5); WBC,URINE 0-5 /hpf (0-5)
[2024-02-04] MEDS: traZODone 50 MG Tab PO ONE (00:09)
[2024-02-04 00:18] VITALS: BP 124/62; PULSE 61
== END 2024-02-04 00:15 | disposition home or self-care (01) ==
LOC: JD.ED 21:22
DX: R10.9 Unspecified abdominal pain (principal); I25.2 Old myocardial infarction; I25.10 Atherosclerotic heart disease of native coronary artery without angina pectoris; E78.00 Pure hypercholesterolemia, unspecified; K21.9 Gastro-esophageal reflux disease without esophagitis; E11.9 Type 2 diabetes mellitus without complications; E03.9 Hypothyroidism, unspecified; Z79.82 Long term (current) use of aspirin; Z95.5 Presence of coronary angioplasty implant and graft; Z95.1 Presence of aortocoronary bypass graft; Z90.49 Acquired absence of other specified parts of digestive tract; Z79.890 Hormone replacement therapy; Z79.899 Other long term (current) drug therapy; Z88.8 Allergy status to other drugs, medicaments and biological substances
CPT/HCPCS: 36415; 80053; 81001; 83605; 83690; 83735; 83880; 84484; 85025; 93005; 96360; 99284; A9270; J7030